=== PATIENT | male | born 1965 | race Caucasian/White ===

== ENCOUNTER 2020-10-13 09:51 | Emergency (ER) | payer SELFPAY ==
[~2020-10-13] VITALS: Ht 188 cm; Wt 87.5 kg
[~2020-10-13 09:51] MED LIST: CLOT1TC TOP; FINA5 PO; GLIM4 PO; Glucophage1000 MG PO; LOSA25 PO; NAPR500 PO; OMEPRAZOLE MAGN20 MG PO; Toprol Xl50 MG PO
[2020-10-13] MEDS ORDERED: CEPH500 PO (10:40)
[2020-10-13] MEDS ORDERED: SULTRIDS PO (10:40)
== END 2020-10-13 11:20 | disposition home or self-care (01) ==
LOC: ER 09:51
DX: L03.115 Cellulitis of right lower limb (principal); E11.9 Type 2 diabetes mellitus without complications; Z79.84 Long term (current) use of oral hypoglycemic drugs; Z79.899 Other long term (current) drug therapy; Z87.891 Personal history of nicotine dependence
CPT/HCPCS: 96372; 99283-25; J1885

== ENCOUNTER 2020-10-19 09:54 | Emergency (ER) | payer OTHER ==
[~2020-10-19] VITALS: Ht 188 cm; Wt 81.7 kg
[~2020-10-19 09:54] MED LIST changes: +CEPH500 PO; +SULTRIDS PO
[2020-10-19] MEDS ORDERED: Zofran8 MG PO (11:12)
== END 2020-10-19 11:30 | disposition home or self-care (01) ==
LOC: ER 09:54
DX: L02.611 Cutaneous abscess of right foot (principal); L03.115 Cellulitis of right lower limb; E11.9 Type 2 diabetes mellitus without complications; Z79.899 Other long term (current) drug therapy; Z79.84 Long term (current) use of oral hypoglycemic drugs; Z91.14 Patient's other noncompliance with medication regimen; Z88.8 Allergy status to other drugs, medicaments and biological substances; Z87.891 Personal history of nicotine dependence
CPT/HCPCS: 10060; 82947; 99283-25; A9270-GY

== ENCOUNTER 2020-10-25 12:48 | Emergency (ER) | payer OTHER ==
[~2020-10-25] VITALS: Ht 188 cm; Wt 72.6 kg
[~2020-10-25 12:48] MED LIST changes: +Zofran8 MG PO
[2020-10-25 13:31] LABS: BASOPHILS ABSOLUTE AUTO 0.06 K/mm3 (0.00-0.23); BASOPHILS PERCENT AUTO 0 % (0-2); EOSINOPHILS ABSOLUTE AUTO 0.08 K/mm3 (0.00-0.68); EOSINOPHILS PERCENT AUTO 1 % (0-6); Hematocrit 34.2 % (37.0-53.0); Hemoglobin 10.4 g/dL (13.5-17.5); IMMATURE GRAN ABSOLUTE AUTO 0.17 K/mm3 (0.00-0.10); IMMATURE GRAN PERCENT AUTO 1 % (0-1); LYMPHOCYTES ABSOLUTE AUTO 1.35 K/mm3 (0.84-5.20); LYMPHOCYTES PERCENT AUTO 10 % (21-46); MONOCYTES ABSOLUTE AUTO 0.68 K/mm3 (0.16-1.47); MONOCYTES PERCENT AUTO 5 % (4-13); Mean Corpuscular HGB 25.6 pg (26.0-34.0); Mean Corpuscular HGB Conc 30.4 g/dL (31.5-36.5); Mean Corpuscular Volume 84 fL (80-100); Mean Platelet Volume 10.4 fL (9.1-12.4); NEUTROPHILS ABSOLUTE AUTO 11.57 K/mm3 (1.96-9.15); NEUTROPHILS PERCENT AUTO 83 % (41-73); Platelet Count 178 K/mm3 (150-400); RDW Coefficient Variation 16.2 % (11.7-14.2); RDW Standard Deviation 49.9 fL (35.1-46.3); Red Blood Cell Count 4.06 M/mm3 (4.30-5.90); White Blood Cell Count 13.91 K/mm3 (4.00-11.30)
[2020-10-25 13:32] LABS: Base Excess Venous -4.5 mmol/L; Bicarbonate Venous 21.1 mmol/L (24.0-30.0); PCO2 Venous 35.5 mmHg (38-42); PO2 Venous 114 mmHg (38-42); pH Blood Venous 7.37 (7.34-7.37)
[2020-10-25 13:56] LABS: Alanine Aminotransfer (ALT/SGP 38 U/L (12-78); Albumin/Globulin Ratio 0.3 (0.8-1.8); Alk Phos 151 U/L (50-136); Anion Gap 8 mmol/L (6-16); Aspartate Aminotrans (AST/SGOT 31 U/L (12-37); Bilirubin, Total 1.1 mg/dL (0.1-1.0); Blood Urea Nitrogen 29 mg/dL (8-24); Bun/Creatinine Ratio 26.9 (12.0-20.0); CO2, Blood 22 mmol/L (21-32); Calcium, Blood 8.3 mg/dL (8.5-10.1); Chloride, Blood 97 mmol/L (98-108); Creatinine, Blood 1.08 mg/dL (0.60-1.20); Globulin, Blood 6.7 g/dL (2.2-4.0); Glomerular Filtration Rate >60 (60-); Glucose, Blood 649 mg/dL (70-99); Potassium, Blood 4.5 mmol/L (3.5-5.5); Sodium, Blood 127 mmol/L (136-145); Total Protein, Blood 8.7 g/dL (6.4-8.2)
== END 2020-10-25 16:33 | disposition left against medical advice (07) ==
LOC: ER 12:48
PROVIDERS: Emergency Medicine
DX: R06.02 Shortness of breath (principal); R19.7 Diarrhea, unspecified; Z53.21 Procedure and treatment not carried out due to patient leaving prior to being seen by health care provider; Z88.8 Allergy status to other drugs, medicaments and biological substances; Z79.84 Long term (current) use of oral hypoglycemic drugs; Z79.899 Other long term (current) drug therapy
CPT/HCPCS: 36415; 71045; 80053; 82803; 85025; 93005; 93010

== ENCOUNTER 2020-11-24 13:02 | Inpatient (IN) | payer OTHER ==
[~2020-11-24] VITALS: Ht 188 cm; Wt 74.8 kg
[2020-11-24 13:40] LABS: BASOPHILS ABSOLUTE AUTO 0.08 K/mm3 (0.00-0.23); BASOPHILS PERCENT AUTO 0 % (0-2); EOSINOPHILS ABSOLUTE AUTO 0.01 K/mm3 (0.00-0.68); EOSINOPHILS PERCENT AUTO 0 % (0-6); Hematocrit 30.6 % (37.0-53.0); Hemoglobin 9.8 g/dL (13.5-17.5); IMMATURE GRAN ABSOLUTE AUTO 0.34 K/mm3 (0.00-0.10); IMMATURE GRAN PERCENT AUTO 2 % (0-1); LYMPHOCYTES ABSOLUTE AUTO 1.77 K/mm3 (0.84-5.20); LYMPHOCYTES PERCENT AUTO 8 % (21-46); MONOCYTES ABSOLUTE AUTO 0.96 K/mm3 (0.16-1.47); MONOCYTES PERCENT AUTO 4 % (4-13); Mean Corpuscular HGB 25.7 pg (26.0-34.0); Mean Corpuscular Volume 80 fL (80-100); Mean Platelet Volume 9.7 fL (9.1-12.4); NEUTROPHILS ABSOLUTE AUTO 19.58 K/mm3 (1.96-9.15); NEUTROPHILS PERCENT AUTO 86 % (41-73); Platelet Count 264 K/mm3 (150-400); RDW Coefficient Variation 17.1 % (11.7-14.2); RDW Standard Deviation 49.6 fL (35.1-46.3); Red Blood Cell Count 3.82 M/mm3 (4.30-5.90); White Blood Cell Count 22.74 K/mm3 (4.00-11.30)
[2020-11-24 14:03] LABS: Alanine Aminotransfer (ALT/SGP 20 U/L (12-78); Albumin, Blood 1.8 g/dL (3.4-5.0); Albumin/Globulin Ratio 0.3 (0.8-1.8); Alk Phos 150 U/L (50-136); Anion Gap 10 mmol/L (6-16); Aspartate Aminotrans (AST/SGOT 24 U/L (12-37); Blood Urea Nitrogen 20 mg/dL (8-24); Bun/Creatinine Ratio 20.9 (12.0-20.0); CO2, Blood 23 mmol/L (21-32); Calcium, Blood 8.8 mg/dL (8.5-10.1); Chloride, Blood 95 mmol/L (98-108); Creatinine, Blood 0.96 mg/dL (0.60-1.20); Globulin, Blood 6.9 g/dL (2.2-4.0); Glomerular Filtration Rate >60 (60-); Glucose, Blood 338 mg/dL (70-99); Potassium, Blood 4.3 mmol/L (3.5-5.5); Sodium, Blood 128 mmol/L (136-145); Total Protein, Blood 8.7 g/dL (6.4-8.2)
[2020-11-24 14:10] LABS: Source, Urine Clean Catch
[2020-11-24 14:19] LABS: Bilirubin, Urine Neg (Neg); Blood, Urine 5+ (Neg); Glucose Qualitative, Urine 4+ (Neg); Ketones, Urine Neg (Neg); Leukocyte Esterase, Urine 3+ (Neg); Nitrite, Urine Neg (Neg); Protein, Urine 2+ (Neg); Specific Gravity, Urine 1.015 (1.003-1.022); Urobilinogen, Urine NORM (Normal)
[2020-11-24 14:28] LABS: Appearance, Urine Hazy (Clear); Color, Urine Yellow (P-Yellow)
[2020-11-24 14:30] LABS: White Blood Cells, Urine TNTC /hpf (0-5)
[2020-11-24 14:31] LABS: Bacteria Many /hpf; Squamous Epithelial Cells Few /hpf (Few)
[2020-11-24 15:01] LABS: Magnesium, Blood 1.6 mg/dL (1.6-2.4); Thyroid Stimulating Hormone 2.03 uIU/mL (0.360-4.800)
[2020-11-24] MEDS ORDERED: METF500 PO (16:19)
[2020-11-24] MEDS ORDERED: Amaryl1 MG PO (18:45)
[2020-11-25 02:24] LABS: Influenza A, PCR Negative (NEGATIVE); Influenza B, PCR Negative (NEGATIVE); Resp Syncytial Virus, PCR Negative (NEGATIVE); SARS-Cov-2 (COVID-19) PCR, MMC Negative (NEGATIVE)
--- NOTE | 2020-11-25 03:04 | NUR ---
2002 PT IS A/O X4. NO CHANGES IN PATIENT. CRITICAL LACTIC ACID REPORTED TO HOSPITALIST HILDA. ORDER TO GIVE 1L NS BOLUS. 2205 PT'S HR HAS BEEN IN THE 110'S. PT DENIES FEELING ANXIOUS. PT COMPAINS OF PAIN IN SHOULDER AND KNEES, MOSTLY RIGHT SHOULDER. PT STATES HE CANNOT TAKE ANY PAIN MEDS BECAUSE HIS PRIMARY DOCTOR GAVE HIM A CORTISONE SHOT ON 11/23/19. PT STATES HIS PRIMARY DOCTOR SAID TO WAIT 48 HOURS TO TAKE PAIN MEDS. HEATING PAD PROVIDED FOR RIGHT KNEE. PT DOES NOT WANT HEATING PAD ON SHOULDER. HOSPITALIST MADE AWARE PT'S HR, BOTH HILDA AND MECHANICAL SYSTEMS DESIGNER SAID IT IS OKAY TO GIVE PAIN MEDICATION AND WON'T AFFECT CORTISONE SHOT. THIS WAS EXPLAINED TO THE PATIENT AND PT EDUCATED THE PAIN MIGHT BE WHAT IS CAUSING HIGH HEART RATE. PT AGREED TO PAIN MEDICATION. IV TORADOL GIVEN. PAIN HAS DECREASED SINCE THIS WAS GIVEN. 2300 PT HR STILL IN THE 110'S. PT STATES PAIN IS TOLERABLE. HOSPITALIST HILDA NOTIFIED. TELE ORDERED. 2345 PT BP DECREASING, STILL TACHY. SINUS TACH AT 119 PER COAT AGENT. HOSPTIALIST HILDA NOTIFIED. 1L BOLUS NS ORDERED WELL CONTINOUS NS AT 200 ML. WILL CONTINUE TO MONITOR.
[2020-11-25 05:41] LABS: Hematocrit 25.7 % (37.0-53.0); Hemoglobin 7.9 g/dL (13.5-17.5); Mean Corpuscular HGB 24.8 pg (26.0-34.0); Mean Corpuscular HGB Conc 30.7 g/dL (31.5-36.5); Mean Corpuscular Volume 81 fL (80-100); Mean Platelet Volume 10.4 fL (9.1-12.4); Platelet Count 185 K/mm3 (150-400); RDW Coefficient Variation 17.2 % (11.7-14.2); RDW Standard Deviation 50.6 fL (35.1-46.3); Red Blood Cell Count 3.18 M/mm3 (4.30-5.90); White Blood Cell Count 11.74 K/mm3 (4.00-11.30)
[2020-11-25 05:59] LABS: Anion Gap 8 mmol/L (6-16); Blood Urea Nitrogen 20 mg/dL (8-24); Bun/Creatinine Ratio 19.8 (12.0-20.0); CO2, Blood 21 mmol/L (21-32); Calcium, Blood 8.2 mg/dL (8.5-10.1); Chloride, Blood 103 mmol/L (98-108); Creatinine, Blood 1.01 mg/dL (0.60-1.20); Glomerular Filtration Rate >60 (60-); Glucose, Blood 320 mg/dL (70-99); Potassium, Blood 4.3 mmol/L (3.5-5.5); Sodium, Blood 132 mmol/L (136-145)
[2020-11-25 06:46] LABS: Percent Saturation 20.3 % (20.0-50.0)
[2020-11-25 06:55] LABS: BAND PERCENT MAN 4 % (0-8); BASOPHILS PERCENT MAN 0 % (0-2); EOSINOPHILS PERCENT MAN 0 % (0-6); LYMPHOCYTES ABSOLUTE MAN 0.82 K/mm3 (0.84-5.20); LYMPHOCYTES PERCENT MAN 7 % (21-46); MONOCYTES ABSOLUTE MAN 0.23 K/mm3 (0.16-1.47); MONOCYTES PERCENT MAN 2 % (4-13); NEUTROPHILS ABSOLUTE MAN 10.68 K/mm3 (1.96-9.15); SEG NEUTROPHILS PERCENT MAN 87 % (41-73); TOTAL CELLS COUNTED 100
--- NOTE | 2020-11-25 07:37 | NUR ---
FLAP PRESSER SUMMARY PT A/O X4. PT'S PAIN HAS BEEN TOLERABLE SINCE IV PAIN MED GIVEN. PT HAD A FALL AT 0330. PT DID NOT USE CALL LIGHT. PER PT, HE WAS TRYING TO AMBULATE TO [facility] AND DRAGGED IT BACK NEAR THE BEDSIDE AND HE WAS WALKING BACKWARDS, HE WAS CAUGHT IN IV LINE AND FELL. PT DID NOT HIT HIS HEAD. MID FALL WITNESSED BY BUSINESS ACCOUNT LEADERFALGUNI. PT HAS AN ABRASTION UNDERNEATH RIGHT BUTTOCKS. PT STATES HE DOES NOT FEEL PAIN. PICTURE TAKEN OF ABRASION FROM FALL. PT RE-EDUCATED TO USE CALL LIGHT WHENEVER NEEDING TO GET UP OR OTHER HELP. BED ALARM PLACED. POSITIVE BLOOD CULTURE NOTIFIED TO HOSPITALIST DR. VILLAFANA. NO NEW ORDER. PLEASE VIEW PREVIOUS RN NOTES. REPORT GIVEN TO ONCOMING RN.
--- NOTE | 2020-11-25 11:14 | NUR ---
Echocardiogram completed.
--- NOTE | 2020-11-25 16:50 | NUR ---
SHIFT SUMMARY PT AOX4. CALLS APPROPRIATELY. PT IS ON RA AND 1P ASSIST. PT IS VERY UNSTEADY AND HAS GENERALIZED WEAKNESS. PT STATED THAT DR ESCOBAR CAME IN WHO WAS SUPPOSED TO DO THE SURGERY OF HIS ABCESS THIS AM; APPARENTLY SURGERY CANCELLED TODAY, DR COUCH AWARE. PT IS BACK TO [facility] DIET. PT HAD ECHO DONE TODAY, AND SEEN BY PULMUNOLOGIST FOR LEFT EMPYEMA. PT WILL ALSO BE SEEN BY DR GALLOWAY FOR MRSA INFECTION. PT AWAITS FOR CT-CHEST. PT C/O PAIN; MEDICATED PER EMAR. BP IS ON THE LOW 100'S SBP. ENCOURAGE PO. PT IS ON BED ALARM AND ENCOURANGE THE USE OF CALL LIGHT. BED IS IN THE LOWEST POSITION AND CALL LIGHT WITHIN REACH
[2020-11-25 18:25] LABS: Vancomycin, Trough 12.4 ug/mL (5.0-10.0)
[2020-11-25 20:01] LABS: International Normalized Ratio 1.19; Prothrombin Time Results 12.6 Sec (9.7-11.5)
--- NOTE | 2020-11-26 04:40 | NUR ---
SHIFT SUMMARY- PT. A&O, PLEASANT, AND COOPERATIVE WITH CARE. HAD NO ACUTE EVENTS OVERNIGHT. HEPARIN GTT ORDER CANCELLED BY PULMONOLOGY. PT. CONTINUED ON IV FLUIDS AND ABX'S, TOLERATING WELL. C/O OF R FOOT PAIN 1X THIS SHIFT, MEDICATED PER EMAR WITH GOOD EFFECT. PT. APPEARED TO HAVE SLEPT COMFORTABLY T/O THE NIGHT, NO APPARENT DISTRESS NOTED. DENIED ANY OTHER NEEDS T/O THE NIGHT, VSS. PLAN FOR DR. FOX TO CONSULT ON PT. REGARDING POSS L CHEST TUBE PLACEMENT AND DRAINAGE. CALL LIGHT WITHIN REACH, SIDE RAILS UPX2, AND BED ALARM ON FOR SAFETY. WILL CONT TO MONITOR.
[2020-11-26 05:37] LABS: Hematocrit 23.7 % (37.0-53.0); Hemoglobin 7.2 g/dL (13.5-17.5); Mean Corpuscular HGB 24.5 pg (26.0-34.0); Mean Corpuscular HGB Conc 30.4 g/dL (31.5-36.5); Mean Corpuscular Volume 81 fL (80-100); Mean Platelet Volume 9.7 fL (9.1-12.4); Platelet Count 172 K/mm3 (150-400); RDW Coefficient Variation 17.3 % (11.7-14.2); RDW Standard Deviation 50.7 fL (35.1-46.3); Red Blood Cell Count 2.94 M/mm3 (4.30-5.90); White Blood Cell Count 10.18 K/mm3 (4.00-11.30)
[2020-11-26 06:09] LABS: Albumin, Blood 1.2 g/dL (3.4-5.0); Anion Gap 9 mmol/L (6-16); Blood Urea Nitrogen 19 mg/dL (8-24); Bun/Creatinine Ratio 18.4 (12.0-20.0); CO2, Blood 19 mmol/L (21-32); Calcium, Blood 7.9 mg/dL (8.5-10.1); Chloride, Blood 104 mmol/L (98-108); Creatinine, Blood 1.03 mg/dL (0.60-1.20); Glomerular Filtration Rate >60 (60-); Glucose, Blood 254 mg/dL (70-99); Phosphorus, Blood 2.4 mg/dL (2.5-4.9); Potassium, Blood 3.8 mmol/L (3.5-5.5); Sodium, Blood 132 mmol/L (136-145)
--- NOTE | 2020-11-26 17:48 | NUR ---
SUMMARY PT IS A/O X4, PLEASANT/COOPERATIVE. HE STATE CONINUING L SHOULDER PAIN, R KNEE PAIN HAVE GIVEN IV TORADOL FOR RELIEF/CONTROL. DR GALLOWAY IN TODAY, ADJUST IV ANTIBX, ORDER ORTHO CONSULT w DR Dixie POP R/T R KNEE SWELLING. DR COUCH ORDER CT GUIDED CHEST TUBE PLACEMENT. HE WENT OUT TO HAVE CHEST TUBE PLACED THIS AFTERNOON, INSERT SITE L BACK, DRNG THICK PANTOJA FLUID. LUNGS TODAY WERE DECREASED T/O w CRACKLES HE HAS BEEN COUGHING UP MODERATE AMTS SPUTUM. DR COUCH ASSESS LIA AREA ABCESS SITE, DRY @ THIS TIME, SHE STATE TO LEAVE OPEN TO AIR. VSS. IVF'S & IV ANTIBX CONTINUE.
[2020-11-26 19:10] LABS: BODY FLUID RBC 0.011 M/mm3 (0-0)
[2020-11-26 19:18] LABS: Body Fluid Crystals NEG (NEGATIVE)
[2020-11-26 19:23] LABS: WBC Count, Synovial Fluid 33840 /mm3 (0-180)
[2020-11-26 19:25] LABS: Appearance, Synovial Fluid Cloudy (Clear); Color, Synovial Fluid Yellow (None-P Yel)
[2020-11-26 19:44] LABS: Lymphs, Synovial Fluid 2 % (0-15); Monocytes/Macrophages, Synovia 5 % (0-65); Neutrophils, Synovial Fluid 93 % (0-24)
[2020-11-27 05:07] LABS: BASOPHILS ABSOLUTE AUTO 0.05 K/mm3 (0.00-0.23); BASOPHILS PERCENT AUTO 0 % (0-2); Hemoglobin 7.4 g/dL (13.5-17.5); LYMPHOCYTES ABSOLUTE AUTO 1.24 K/mm3 (0.84-5.20); LYMPHOCYTES PERCENT AUTO 10 % (21-46); MONOCYTES ABSOLUTE AUTO 0.81 K/mm3 (0.16-1.47); MONOCYTES PERCENT AUTO 7 % (4-13); Mean Corpuscular HGB 25.1 pg (26.0-34.0); Mean Corpuscular HGB Conc 30.8 g/dL (31.5-36.5); Mean Corpuscular Volume 81 fL (80-100); Mean Platelet Volume 9.9 fL (9.1-12.4); Platelet Count 183 K/mm3 (150-400); RDW Coefficient Variation 17.5 % (11.7-14.2); RDW Standard Deviation 51.3 fL (35.1-46.3); Red Blood Cell Count 2.95 M/mm3 (4.30-5.90); White Blood Cell Count 12.18 K/mm3 (4.00-11.30)
[2020-11-27 05:39] LABS: Alanine Aminotransfer (ALT/SGP 35 U/L (12-78); Albumin, Blood 1.2 g/dL (3.4-5.0); Albumin/Globulin Ratio 0.2 (0.8-1.8); Alk Phos 122 U/L (50-136); Anion Gap 8 mmol/L (6-16); Aspartate Aminotrans (AST/SGOT 56 U/L (12-37); Bilirubin, Total 0.8 mg/dL (0.1-1.0); Blood Urea Nitrogen 19 mg/dL (8-24); Bun/Creatinine Ratio 19.1 (12.0-20.0); CO2, Blood 20 mmol/L (21-32); Chloride, Blood 105 mmol/L (98-108); Creatinine, Blood 0.99 mg/dL (0.60-1.20); Globulin, Blood 5.3 g/dL (2.2-4.0); Glomerular Filtration Rate >60 (60-); Glucose, Blood 225 mg/dL (70-99); Potassium, Blood 4.1 mmol/L (3.5-5.5); Sodium, Blood 133 mmol/L (136-145); Total Protein, Blood 6.5 g/dL (6.4-8.2)
[2020-11-27 05:53] LABS: EOSINOPHILS ABSOLUTE AUTO 0.16 K/mm3 (0.00-0.68); EOSINOPHILS PERCENT AUTO 1 % (0-6); IMMATURE GRAN ABSOLUTE AUTO 0.18 K/mm3 (0.00-0.10); IMMATURE GRAN PERCENT AUTO 2 % (0-1); NEUTROPHILS ABSOLUTE AUTO 9.74 K/mm3 (1.96-9.15); NEUTROPHILS PERCENT AUTO 80 % (41-73)
--- NOTE | 2020-11-27 07:30 | NUR ---
SHIFT SUMMARY: PATIENT IS A&OX3, S/P ASPIRATION OF R KNEE AND CHEST TUBE PLACEMENT. VSS, IVF INFUSING AT 200ML/HR, WITH SCHEDULED VANCO AND UNASYN. PATIENT REPORTED PAIN IN L SHOULDER 7-8/10 WITH AN HOUR BEFOR NEXT DOSE WAS AVAILABLE. DR MADRIGAL WAS NOTIFIED AND ORDERS FOR DILAUDID AND OXYCODONE. DILAUDID WAS GIVEN WITH GOOD EFFECT, RATING PAIN 2/10 ON RE-ASSESMENT. CHEST TUBE DRAIN PUT OUT 59 ML OF LIGHT BROWN FLUID. DRSG TO R FOOT IS CD&I. WOUND ON LEFT GLUTEAL FOLD IS OPEN TO AIR PER MD ORDER. BANDAID ON R KNEE HAS A SCANT AMOUNT OF OLD SHADOWING. AQUA PAD IS IN PLACE ON R KNEE.
[2020-11-27 08:10] LABS: HIV SCREEN 4TH GENERATION WRFX Non Reactive (Non Reactive)
--- NOTE | 2020-11-27 11:49 | NUR ---
CBG 216, PLANT HR MANAGER REPORT RESULT DID NOT CROSS OVER TO INTERNET. PT CONTINUES NPO HOLDING INSULIN @ THIS TIME.
--- NOTE | 2020-11-27 13:20 | NUR ---
RECEIVED REPORT MANOLO HUTTON. HELPED PT TRANSFER TO [facility] WITH WALKER. PT IS VERY PAINFUL WITH ANY MOVEMENT. CHEST TUBE TO L POSTERIER BACK WITH DRESSING CDI. DRAINING YELLOW PINK SCANT AMOUNT OF FLUID, SUCTION INTACT. History, Chart, Medications and Allergies reviewed before start of procedure.Patient confirms NPO status and agrees with scheduled surgery.
--- NOTE | 2020-11-27 14:50 | NUR ---
CHEST TUBE DRAIN WITH SCANT PANTOJA DRNG SITE CLEAR FRANDY INTACT RO RIGHT KNEE WITH NO DRNG
[2020-11-27 16:30] LABS: Vancomycin, Trough 15.1 ug/mL (5.0-10.0)
--- NOTE | 2020-11-27 18:03 | NUR ---
SUMMARY PT IS A/O X4, PLEASANT/COOPERATIVE HOWEVER HE STATE CONTINUING PAIN R KNEE & L SHOULDER. HAVE GIVEN IV DILAUDID 0.5 MULT X'S TODAY FOR PAIN RELIEF. HE HAS BEEN NPO T/O DAY FOR R KNEE SURG/I&D TODAY FOLLOWED BY ERICH THIS AFTERNOON. PROCEDURES FINISHED APPROX 1809. DR COUCH SPOKE w PT & S/O TODAY STATE BED UNAVAIL @ [facility], PLAN FOR TRANSFER TO [facility], THEY AGREE. EARLY INTERVENTIONIST ARRNGE STEPHENRA TRANSFER/ORDER.
--- NOTE | 2020-11-27 18:05 | NUR ---
PT STABLE POST PROCEDURE, REPORT TO JO HOANG; ALL QUESTIONS ANSWERED.
--- NOTE | 2020-11-27 18:51 | NUR ---
REPORT CALLED TO SEJAL MAX
--- NOTE | 2020-11-27 20:03 | NUR ---
FOLLOWING ERICH. PT ABLE TO TAKE CL'S W/O DIFFICULTY. DR COUCH NOTIFIED, ORDER ADA DINNER TRAY, PROVIDED TO PT PRIOR TO COBRA TRANSFER TO [facility]. AMB CREW ARRIVE APPROX 1949. PT TRANSFERED TO [facility]. NS INFUSING @ 75 ML/HR w IVPB VANCO VIA R POWERGLIDE IV. LAC IV SITE SL. CHEST TUBE L ANTERIOR UPPER BACK PATENT, SECURE DRSG CDI. FRANDY DRAIN R KNEE PATENT, SECURE. R KNEE DRSG IN PLACE, CDI. PT GIVEN IV DILAUDID 0.5MG @ 1845 IN PREP FOR TRANSPORT, LSHOULDER & RKNEE CONTINUE PAINFUL w MOVEMENT. PT IS A/O X4, CALLING S/O TO INFORM HER OF TRANSFER & RM #.
[2021-04-14] MEDS ORDERED: ELIQUIS5 MG PO (12:37)
[2021-04-14] MEDS ORDERED: CYCL10 PO (12:38)
[2021-04-14] MEDS ORDERED: BISA10S PR (12:38)
[2021-04-14] MEDS ORDERED: Pepcid20 MG PO (12:39)
[2021-04-14] MEDS ORDERED: INSULIN LANTUS SC (12:40)
[2021-04-14] MEDS ORDERED: METO50ER PO (12:40)
[2021-04-14] MEDS ORDERED: OXYC5 PO (12:41)
[2021-04-14] MEDS ORDERED: OMEP20ER PO (12:41)
[2021-04-14] MEDS ORDERED: METO25 PO (12:41)
[2021-04-14] MEDS ORDERED: MULVITA PO (12:41)
[2021-04-14] MEDS ORDERED: MIRALAX17 GM PO (12:42)
[2021-04-14] MEDS ORDERED: TAMS.4ER PO (12:42)
[2021-04-14] MEDS ORDERED: TRAM50 PO (12:42)
== END 2020-11-27 19:15 | disposition short-term general hospital (02) | DRG 871 ==
LOC: ER 13:02 → MEDS 13:03
PROVIDERS: Emergency Medicine; Internal Medicine Critical Care Medicine; Orthopaedic Surgery; Physician Assistant; Surgery; ADMIT Internal Medicine
PROC: 0W9B30Z Drainage of Left Pleural Cavity with Drainage Device, Percutaneous Approach (ICD-10-PCS; 2020-11-26)
PROC: 0S9C40Z Drainage of Right Knee Joint with Drainage Device, Percutaneous Endoscopic Approach (ICD-10-PCS; 2020-11-27)
PROC: B246ZZ4 Ultrasonography of Right and Left Heart, Transesophageal (ICD-10-PCS; 2020-11-27)
PROC: 3E1U48Z Irrigation of Joints using Irrigating Substance, Percutaneous Endoscopic Approach (ICD-10-PCS; principal; 2020-11-27 12:45)
DX: A41.02 Sepsis due to Methicillin resistant Staphylococcus aureus (principal); N15.1 Renal and perinephric abscess; K68.12 Psoas muscle abscess; J86.9 Pyothorax without fistula; K61.1 Rectal abscess; N12 Tubulo-interstitial nephritis, not specified as acute or chronic; M00.9 Pyogenic arthritis, unspecified; Z87.891 Personal history of nicotine dependence; N40.0 Benign prostatic hyperplasia without lower urinary tract symptoms; Z79.84 Long term (current) use of oral hypoglycemic drugs; I10 Essential (primary) hypertension; E86.0 Dehydration; E11.65 Type 2 diabetes mellitus with hyperglycemia; Z66 Do not resuscitate; Z20.822 Contact with and (suspected) exposure to COVID-19; I37.1 Nonrheumatic pulmonary valve insufficiency; I34.0 Nonrheumatic mitral (valve) insufficiency; Z91.19 Patient's noncompliance with other medical treatment and regimen; D63.8 Anemia in other chronic diseases classified elsewhere
CPT/HCPCS: 0241U; 32557; 36415; 71260; 73560-RT; 73630; 74177; 80048; 80053; 80069; 80202; 81001; 82607; 82728; 82746; 82947; 83540; 83550; 83605; 83735; 84145; 84443; 85025; 85027; 85610; 85730; 87040; 87070; 87075; 87077; 87086; 87147; 87186; 87205; 87389; 88108; 88305; 89051; 89060; 93005; 93010; 93306; 93312; 93325; 93970; 96365-59; 99152; 99285-25; A9270; C1751; J0171; J0295; J0696; J1100; J1170; J1644; J1650; J1885; J2250; J2310; J2370; J2405; J2543; J2704; J3010; J3370; J7030; J7040; J7050; J7060; J7120; Q9967

== ENCOUNTER → 2021-01-04 | Outpatient (CLI) | payer OTHER ==
[~2021-01-04] MED LIST changes: +Amaryl1 MG PO; +BISA10S PR; +CYCL10 PO; +ELIQUIS5 MG PO; +INSULANI SC; +INSULIN LANTUS SC; +METF500 PO; +METO25 PO; +METO50ER PO; +MIRALAX17 GM PO; +MULVITA PO; +OMEP20ER PO; +OXYC5 PO; +Pepcid20 MG PO; +TAMS.4ER PO; +TRAM50 PO
[2021-01-04 10:56] LABS: Hemoglobin 10.5 g/dL (13.5-17.5); Mean Corpuscular HGB 25.3 pg (26.0-34.0); Mean Corpuscular HGB Conc 30.9 g/dL (31.5-36.5); Mean Corpuscular Volume 82 fL (80-100); Mean Platelet Volume 11.2 fL (9.1-12.4); Platelet Count 193 K/mm3 (150-400); RDW Standard Deviation 47.9 fL (35.1-46.3); Red Blood Cell Count 4.15 M/mm3 (4.30-5.90); White Blood Cell Count 6.82 K/mm3 (4.00-11.30)
[2021-01-04 11:44] LABS: Alanine Aminotransfer (ALT/SGP 68 U/L (12-78); Albumin, Blood 2.8 g/dL (3.4-5.0); Albumin/Globulin Ratio 0.5 (0.8-1.8); Alk Phos 194 U/L (50-136); Anion Gap 5 mmol/L (6-16); Aspartate Aminotrans (AST/SGOT 40 U/L (12-37); Bilirubin, Total 0.3 mg/dL (0.1-1.0); Blood Urea Nitrogen 19 mg/dL (8-24); Bun/Creatinine Ratio 19.1 (12.0-20.0); CO2, Blood 29 mmol/L (21-32); Chloride, Blood 103 mmol/L (98-108); Glomerular Filtration Rate >60 (60-); Glucose, Blood 95 mg/dL (70-99); Potassium, Blood 4.3 mmol/L (3.5-5.5); Sodium, Blood 137 mmol/L (136-145); Total Protein, Blood 8.8 g/dL (6.4-8.2)
[2021-01-04 11:56] LABS: Vancomycin, Trough 18.8 ug/mL (5.0-10.0)
== END | disposition home or self-care (01) ==
LOC: LAB UVN 10:24 → EDSTATUS 11:18
PROVIDERS: Family Medicine
DX: A41.02 Sepsis due to Methicillin resistant Staphylococcus aureus (principal)
CPT/HCPCS: 80053; 80202; 85027; 86140

== ENCOUNTER → 2021-01-11 | Outpatient (CLI) | payer OTHER ==
[2021-01-11 13:39] LABS: Hematocrit 36.7 % (37.0-53.0); Mean Corpuscular Volume 83 fL (80-100); Mean Platelet Volume 11.1 fL (9.1-12.4); Platelet Count 222 K/mm3 (150-400); RDW Coefficient Variation 16.3 % (11.7-14.2); RDW Standard Deviation 49.3 fL (35.1-46.3); White Blood Cell Count 8.28 K/mm3 (4.00-11.30)
[2021-01-11 14:04] LABS: Alanine Aminotransfer (ALT/SGP 66 U/L (12-78); Albumin/Globulin Ratio 0.5 (0.8-1.8); Alk Phos 170 U/L (50-136); Anion Gap 5 mmol/L (6-16); Aspartate Aminotrans (AST/SGOT 45 U/L (12-37); Bilirubin, Total 0.3 mg/dL (0.1-1.0); Blood Urea Nitrogen 19 mg/dL (8-24); Bun/Creatinine Ratio 19.2 (12.0-20.0); CO2, Blood 29 mmol/L (21-32); Calcium, Blood 9.8 mg/dL (8.5-10.1); Chloride, Blood 102 mmol/L (98-108); Creatinine, Blood 0.99 mg/dL (0.60-1.20); Globulin, Blood 5.7 g/dL (2.2-4.0); Glomerular Filtration Rate >60 (60-); Glucose, Blood 129 mg/dL (70-99); Sodium, Blood 136 mmol/L (136-145); Total Protein, Blood 8.7 g/dL (6.4-8.2); Vancomycin, Trough 18.7 ug/mL (5.0-10.0)
== END | disposition home or self-care (01) ==
LOC: EDSTATUS 11:19 → LAB UVN 13:03
PROVIDERS: Family Medicine
DX: I26.90 Septic pulmonary embolism without acute cor pulmonale (principal); A41.02 Sepsis due to Methicillin resistant Staphylococcus aureus
CPT/HCPCS: 80053; 80202; 85027; 86140

== ENCOUNTER → 2021-03-16 | Outpatient (CLI) | payer OTHER ==
[2021-03-16 05:56] LABS: BASOPHILS ABSOLUTE AUTO 0.03 K/mm3 (0.00-0.23); BASOPHILS PERCENT AUTO 1 % (0-2); EOSINOPHILS ABSOLUTE AUTO 0.15 K/mm3 (0.00-0.68); EOSINOPHILS PERCENT AUTO 3 % (0-6); Hematocrit 36.6 % (37.0-53.0); Hemoglobin 12.1 g/dL (13.5-17.5); IMMATURE GRAN ABSOLUTE AUTO 0.01 K/mm3 (0.00-0.10); IMMATURE GRAN PERCENT AUTO 0 % (0-1); LYMPHOCYTES ABSOLUTE AUTO 1.33 K/mm3 (0.84-5.20); LYMPHOCYTES PERCENT AUTO 30 % (21-46); MONOCYTES PERCENT AUTO 11 % (4-13); Mean Corpuscular HGB 26.5 pg (26.0-34.0); Mean Corpuscular HGB Conc 33.1 g/dL (31.5-36.5); Mean Corpuscular Volume 80 fL (80-100); Mean Platelet Volume 9.3 fL (9.1-12.4); NEUTROPHILS ABSOLUTE AUTO 2.49 K/mm3 (1.96-9.15); NEUTROPHILS PERCENT AUTO 55 % (41-73); Platelet Count 141 K/mm3 (150-400); RDW Coefficient Variation 13.7 % (11.7-14.2); Red Blood Cell Count 4.57 M/mm3 (4.30-5.90); White Blood Cell Count 4.51 K/mm3 (4.00-11.30)
[2021-03-16 06:12] LABS: Anion Gap 5 mmol/L (6-16); Blood Urea Nitrogen 18 mg/dL (8-24); Bun/Creatinine Ratio 15.7 (12.0-20.0); CO2, Blood 27 mmol/L (21-32); Calcium, Blood 9.4 mg/dL (8.5-10.1); Chloride, Blood 104 mmol/L (98-108); Creatinine, Blood 1.15 mg/dL (0.60-1.20); Glomerular Filtration Rate >60 (60-); Glucose, Blood 133 mg/dL (70-99); Potassium, Blood 3.8 mmol/L (3.5-5.5); Sodium, Blood 136 mmol/L (136-145)
== END | disposition home or self-care (01) ==
LOC: LAB UVN 05:48 → EDSTATUS 12:07
PROVIDERS: Internal Medicine
DX: E11.9 Type 2 diabetes mellitus without complications (principal); E78.5 Hyperlipidemia, unspecified; E87.1 Hypo-osmolality and hyponatremia; R78.81 Bacteremia
CPT/HCPCS: 80048; 85025

== ENCOUNTER → 2021-04-01 | Outpatient (CLI) | payer OTHER | END | disposition home or self-care (01) | LOC: LAB UVN 06:18 → EDSTATUS 10:52 | DX: A41.9 Sepsis, unspecified organism (principal); D64.9 Anemia, unspecified; E87.1 Hypo-osmolality and hyponatremia; E11.65 Type 2 diabetes mellitus with hyperglycemia; R53.1 Weakness; R63.4 Abnormal weight loss; I10 Essential (primary) hypertension; I82.409 Acute embolism and thrombosis of unspecified deep veins of unspecified lower extremity | CPT/HCPCS: 83036; 85018 ==

== ENCOUNTER 2021-04-15 11:03 | Inpatient (IN) | payer OTHER ==
[~2021-04-15] VITALS: Ht 188 cm; Wt 130.4 kg
[~2021-04-15 11:03] MED LIST changes: -INSULANI SC
[2021-04-15] MEDS ORDERED: INSULANI SC (13:37)
--- NOTE | 2021-04-15 14:23 | NUR ---
Surgical site prepped with 2% Chlorhexidine cloth wipe. History, Chart, Medications and Allergies reviewed before start of procedure.Lungs clear T/O to Auscultation. Patient confirms NPO status and agrees with scheduled surgery. PT RECEIVED OXYCONTIN PO PER ORDER WITH A SIP OF WATER. ALL BELONINGS LEFT IN ROOM 207 IN WHEELCHAIR. MELISSA ALTAMIRANO RN AWARE. SENT BLOOD TO BB FOR TS. PT MAINTAINED IN CONTACT ISOLATION.
--- NOTE | 2021-04-15 18:28 | NUR ---
ARRIVAL TO UNIT PT ARRIVED TO UNIT AT 1745 VIA BED FROM PACU. PT IS AAOX4, REPORTS PAIN OF 8/10 IN RLE. MEDICATED PER EMAR AND REPORTS NO EFFECT, HE IS RESTING COMFORTABLY IN BED WITH NO GRIMACE ON HIS FACE, RESPIRATIONS ARE EVEN AND UNLABORED. PT ON ROOM AIR DENIES SOB. HE IS TOLERATING PO WELL AT THIS TIME WITH NO NAUSEA. CURRENTLY SITTING UP WATCHING TV AND TALKING ON THE PHONE. BELONGINGS AT BEDSIDE. PT UNSURE OF CURRENT MEDICATION REGIMEN WILL ATTEMPT TO RECTIFY ONCE ABLE. PLAN IS TO CONTINUE WITH PAIN MANAGEMENT.
[2021-04-16 04:36] LABS: BASOPHILS ABSOLUTE AUTO 0.01 K/mm3 (0.00-0.23); BASOPHILS PERCENT AUTO 0 % (0-2); EOSINOPHILS PERCENT AUTO 0 % (0-6); Hematocrit 33.6 % (37.0-53.0); Hemoglobin 11.2 g/dL (13.5-17.5); IMMATURE GRAN ABSOLUTE AUTO 0.03 K/mm3 (0.00-0.10); IMMATURE GRAN PERCENT AUTO 0 % (0-1); LYMPHOCYTES ABSOLUTE AUTO 0.77 K/mm3 (0.84-5.20); LYMPHOCYTES PERCENT AUTO 9 % (21-46); MONOCYTES ABSOLUTE AUTO 0.38 K/mm3 (0.16-1.47); MONOCYTES PERCENT AUTO 4 % (4-13); Mean Corpuscular HGB 27.5 pg (26.0-34.0); Mean Corpuscular HGB Conc 33.3 g/dL (31.5-36.5); Mean Corpuscular Volume 83 fL (80-100); Mean Platelet Volume 10.4 fL (9.1-12.4); NEUTROPHILS ABSOLUTE AUTO 7.89 K/mm3 (1.96-9.15); NEUTROPHILS PERCENT AUTO 87 % (41-73); Platelet Count 101 K/mm3 (150-400); RDW Coefficient Variation 14.3 % (11.7-14.2); RDW Standard Deviation 42.1 fL (35.1-46.3); Red Blood Cell Count 4.07 M/mm3 (4.30-5.90); White Blood Cell Count 9.08 K/mm3 (4.00-11.30)
--- NOTE | 2021-04-16 04:50 | NUR ---
SHIFT SUMMARY POD 1 FOR R AKA. STUMP SOCK REMAINS CDI. PT HAS BEEN C/O PHANTOM LIMB PAIN. FLEXIRIL + ROXICODONE GIVEN PER ORDERS. PT USING URINAL TO VOID. JEAN PAUL ADA DIET. USES CALL LIGHT APPROPRIATELY.
--- NOTE | 2021-04-16 09:29 | NUR ---
04/16/21 0929 Екатерина Rogel VERIFICATIONS: EDIT CHART.
--- NOTE | 2021-04-16 17:30 | NUR ---
pt req i remove his iv cath in his wrist removed for comfort meds given as sched pt eating dinner
--- NOTE | 2021-04-17 04:16 | NUR ---
SHIFT SUMMARY: PT POD#2 FOR R AKA. STUMP SOCK DRESSING C/D/I. PAIN WELL MANAGED WITH PERCOCET PER EMAR. PT VOIDING WELL IN URINAL. TRANSFERS TO WHEELCHAIR SBA. CBG 318 AND PT COVERED PER ORDERS. TOLERATING PO. DENIES N/V. AWAITING DISCHARGE TO [facility].
[2021-04-17 05:26] LABS: BASOPHILS ABSOLUTE AUTO 0.02 K/mm3 (0.00-0.23); BASOPHILS PERCENT AUTO 0 % (0-2); EOSINOPHILS ABSOLUTE AUTO 0.05 K/mm3 (0.00-0.68); EOSINOPHILS PERCENT AUTO 1 % (0-6); Hematocrit 29.1 % (37.0-53.0); Hemoglobin 9.7 g/dL (13.5-17.5); IMMATURE GRAN ABSOLUTE AUTO 0.02 K/mm3 (0.00-0.10); IMMATURE GRAN PERCENT AUTO 0 % (0-1); LYMPHOCYTES ABSOLUTE AUTO 1.33 K/mm3 (0.84-5.20); LYMPHOCYTES PERCENT AUTO 22 % (21-46); MONOCYTES ABSOLUTE AUTO 0.57 K/mm3 (0.16-1.47); MONOCYTES PERCENT AUTO 10 % (4-13); Mean Corpuscular HGB 27.7 pg (26.0-34.0); Mean Corpuscular HGB Conc 33.3 g/dL (31.5-36.5); Mean Corpuscular Volume 83 fL (80-100); Mean Platelet Volume 10.4 fL (9.1-12.4); NEUTROPHILS ABSOLUTE AUTO 4.01 K/mm3 (1.96-9.15); NEUTROPHILS PERCENT AUTO 67 % (41-73); Platelet Count 94 K/mm3 (150-400); RDW Coefficient Variation 14.7 % (11.7-14.2); RDW Standard Deviation 44.9 fL (35.1-46.3)
--- NOTE | 2021-04-17 11:30 | NUR ---
A&OX4, MEDICATED W/ PERCOCET THIS AM FOR C/O PAIN ON R STUMP AND "PHANTOM PAIN" PT ABLE TO REPOSITION SELF IN BED, DRESSING ON R STUMP CHANGED BY OTONIEL MOREL THIS AM INCISION SITE APPEARS CLEAN AND DRY, DAVID INTACT, NO REDNESS NOTED, REPORTS TOLERATING DIET WELL, CBG THIS AM WAS 180, WORKED WITH PHYSICAL THERAPY THIS AM, TOLERATED WELL.
--- NOTE | 2021-04-17 14:41 | NUR ---
REFERRAL PACKET FAXED TO [facility] FOR RETURN TO [facility].
--- NOTE | 2021-04-17 17:26 | NUR ---
SUMMARY MEDICATED FOR PAIN ABOUT Q4HRS, WORKED WITH PT TODAY, TOLERATED FAIRLY WELL, DSG CHANGED TODAY BY OTONIEL RODRÍGUEZ, PT REPOSITIONS SELF IN BED, CBG'S APPEAR TO BE BETTER, 142 THIS EVENING, PLAN DC TO SNF ON MONDAY, NO ACUTE CHANGES THIS SHIFT.
[2021-04-18 04:21] LABS: BASOPHILS ABSOLUTE AUTO 0.03 K/mm3 (0.00-0.23); BASOPHILS PERCENT AUTO 1 % (0-2); EOSINOPHILS ABSOLUTE AUTO 0.16 K/mm3 (0.00-0.68); EOSINOPHILS PERCENT AUTO 3 % (0-6); Hematocrit 32.1 % (37.0-53.0); Hemoglobin 10.5 g/dL (13.5-17.5); IMMATURE GRAN ABSOLUTE AUTO 0.03 K/mm3 (0.00-0.10); IMMATURE GRAN PERCENT AUTO 1 % (0-1); LYMPHOCYTES ABSOLUTE AUTO 1.85 K/mm3 (0.84-5.20); LYMPHOCYTES PERCENT AUTO 34 % (21-46); MONOCYTES ABSOLUTE AUTO 0.53 K/mm3 (0.16-1.47); MONOCYTES PERCENT AUTO 10 % (4-13); Mean Corpuscular HGB 27.2 pg (26.0-34.0); Mean Corpuscular HGB Conc 32.7 g/dL (31.5-36.5); Mean Corpuscular Volume 83 fL (80-100); Mean Platelet Volume 10.1 fL (9.1-12.4); NEUTROPHILS ABSOLUTE AUTO 2.91 K/mm3 (1.96-9.15); NEUTROPHILS PERCENT AUTO 53 % (41-73); Platelet Count 104 K/mm3 (150-400); RDW Coefficient Variation 14.8 % (11.7-14.2); Red Blood Cell Count 3.86 M/mm3 (4.30-5.90); White Blood Cell Count 5.51 K/mm3 (4.00-11.30)
[2021-04-18 04:47] LABS: Albumin, Blood 3.2 g/dL (3.4-5.0); Anion Gap 4 mmol/L (6-16); Blood Urea Nitrogen 27 mg/dL (8-24); CO2, Blood 27 mmol/L (21-32); Calcium, Blood 8.8 mg/dL (8.5-10.1); Chloride, Blood 108 mmol/L (98-108); Creatinine, Blood 1.08 mg/dL (0.60-1.20); Glomerular Filtration Rate >60 (60-); Glucose, Blood 140 mg/dL (70-99); Magnesium, Blood 2.3 mg/dL (1.6-2.4); Phosphorus, Blood 3.7 mg/dL (2.5-4.9); Potassium, Blood 4.2 mmol/L (3.5-5.5); Sodium, Blood 139 mmol/L (136-145)
--- NOTE | 2021-04-18 06:39 | NUR ---
SHIFT SUMMARY: 55 Y/O MALE RESTED COMFORTABLY ALL SHIFT; PTS RIGHT STUMP DRESSING DRY AND INTACT; PT C/O RIGHT LEG PAIN RATED 6/10 WITH PERCOCET PO GIVEN WITH GOOD RELIEF NOTED; BED LOW POSITION WITH CALL LIGHT AT SIDE.
--- NOTE | 2021-04-18 18:18 | NUR ---
SUMMARY MEDICATED W/ PERCOCET Q4 HRS FOR PAIN, UP TO W/C TODAY, TOLERATED WELL, DSG C/D/I, DR. BUSTOS SAW PT TODAY, SLEPT MOST OF THE AFTERNOON, NO ACUTE CHANGES THIS SHIFT.
[2021-04-19 04:52] LABS: BASOPHILS ABSOLUTE AUTO 0.02 K/mm3 (0.00-0.23); BASOPHILS PERCENT AUTO 0 % (0-2); EOSINOPHILS PERCENT AUTO 4 % (0-6); Hematocrit 31.4 % (37.0-53.0); Hemoglobin 10.3 g/dL (13.5-17.5); IMMATURE GRAN ABSOLUTE AUTO 0.02 K/mm3 (0.00-0.10); IMMATURE GRAN PERCENT AUTO 0 % (0-1); LYMPHOCYTES ABSOLUTE AUTO 1.45 K/mm3 (0.84-5.20); LYMPHOCYTES PERCENT AUTO 32 % (21-46); MONOCYTES PERCENT AUTO 9 % (4-13); Mean Corpuscular HGB 26.8 pg (26.0-34.0); Mean Corpuscular HGB Conc 32.8 g/dL (31.5-36.5); Mean Corpuscular Volume 82 fL (80-100); Mean Platelet Volume 9.6 fL (9.1-12.4); NEUTROPHILS ABSOLUTE AUTO 2.43 K/mm3 (1.96-9.15); NEUTROPHILS PERCENT AUTO 54 % (41-73); Platelet Count 115 K/mm3 (150-400); RDW Coefficient Variation 14.3 % (11.7-14.2); Red Blood Cell Count 3.84 M/mm3 (4.30-5.90); White Blood Cell Count 4.52 K/mm3 (4.00-11.30)
[2021-04-19 05:12] LABS: Anion Gap 5 mmol/L (6-16); Blood Urea Nitrogen 20 mg/dL (8-24); Bun/Creatinine Ratio 19.2 (12.0-20.0); CO2, Blood 26 mmol/L (21-32); Chloride, Blood 106 mmol/L (98-108); Creatinine, Blood 1.04 mg/dL (0.60-1.20); Glomerular Filtration Rate >60 (60-); Glucose, Blood 178 mg/dL (70-99); Potassium, Blood 4.2 mmol/L (3.5-5.5); Sodium, Blood 137 mmol/L (136-145)
--- NOTE | 2021-04-19 06:20 | NUR ---
SHIFT SUMMARY POD4 R AKA AMPUTATION, A/O X4, VSS, TOLERATING PO, PAIN MANAGED PER EMAR, PASSING FLATUS, PLAN TO RETURN TO [facility] TODAY. NO ACUTE EVENTS THIS SHIFT. CALL LIGHT IN REACH, WILL CTM AND REPORT TO DAY RN.
[2021-04-19 14:54] LABS: SARS-Cov-2 (COVID-19) PCR, MMC NEGATIVE (NEGATIVE)
--- NOTE | 2021-04-19 18:11 | NUR ---
SHIFT SUMMARY/DISCHARGE POD 4 R AKA AA0X4. PT HAS BEEN UP IN CHAIR IN THE HALLS DURING SHIFT. MOVING WELL. REPORTS PAIN MANAGED PER EMAR. TOLERATING PO WELL. DRESSING TO LEG CDI. PICC LINE PLACED THIS EVENING AND FIRST DOSE INFUSING AT THIS TIME. PLAN IS TO DC FROM HERE TO [facility] FOR IV ABX. PT HAS BELONGINGS PACKED UP AND READY TO GO. CURRENTLY SITTING IN BED EATING AND VISITING WITH A FAMILY MEMBER.
--- NOTE | 2021-04-19 18:24 | NUR ---
REPORT GIVEN TO SIA AT [facility]. AWAITING DISCHARGE AT 1900. PT EATING DINNER AT THIS TIME
== END 2021-04-19 19:00 | DRG 617 ==
LOC: MEDS 11:03 → SURS 11:03 → PRE IP 12:30 → SURS 17:43
PROVIDERS: Family Medicine; ADMIT Orthopaedic Surgery
PROC: 0Y6C0Z1 Detachment at Right Upper Leg, High, Open Approach (ICD-10-PCS; principal; 2021-04-15 14:00)
DX: E11.69 Type 2 diabetes mellitus with other specified complication (principal); M86.8X5 Other osteomyelitis, thigh; K76.6 Portal hypertension; M00.061 Staphylococcal arthritis, right knee; R78.81 Bacteremia; Z20.822 Contact with and (suspected) exposure to COVID-19; I10 Essential (primary) hypertension; B95.62 Methicillin resistant Staphylococcus aureus infection as the cause of diseases classified elsewhere; E11.65 Type 2 diabetes mellitus with hyperglycemia; N40.0 Benign prostatic hyperplasia without lower urinary tract symptoms; K21.9 Gastro-esophageal reflux disease without esophagitis; E78.5 Hyperlipidemia, unspecified; Z87.891 Personal history of nicotine dependence; Z88.8 Allergy status to other drugs, medicaments and biological substances; Z79.01 Long term (current) use of anticoagulants; Z79.899 Other long term (current) drug therapy
CPT/HCPCS: 36415; 36569; 80069; 82947; 83735; 85025; 85651; 86140; 86850; 86900; 86901; 87071; 87075; 87205; 88307; 88311; 94760; 97110; 97162; 97166; 97530; 97535; A9270; C1751; J0171; J0690; J0735; J1100; J1170; J1815; J1885; J2250; J2370; J2405; J2704; J2795; J3010; J3370; J7050; J7120; U0004

== ENCOUNTER → 2021-05-12 | Outpatient (CLI) | payer OTHER ==
[~2021-05-12] MED LIST changes: +INSULANI SC
[2021-05-12 10:38] LABS: Anion Gap 6 mmol/L (6-16); Blood Urea Nitrogen 16 mg/dL (8-24); Bun/Creatinine Ratio 15.5 (12.0-20.0); CO2, Blood 26 mmol/L (21-32); Chloride, Blood 104 mmol/L (98-108); Creatinine, Blood 1.03 mg/dL (0.60-1.20); Glomerular Filtration Rate >60 (60-); Glucose, Blood 200 mg/dL (70-99); Sodium, Blood 136 mmol/L (136-145); Vancomycin, Trough 16.4 ug/mL (5.0-10.0)
== END ==
LOC: LAB UVN 09:00 → EDSTATUS 10:51
PROVIDERS: Internal Medicine
DX: Z47.81 Encounter for orthopedic aftercare following surgical amputation (principal); M86.151 Other acute osteomyelitis, right femur; N15.1 Renal and perinephric abscess
CPT/HCPCS: 80048; 80202

== ENCOUNTER → 2021-05-19 | Outpatient (CLI) | payer OTHER ==
[2021-05-19 10:17] LABS: Anion Gap 10 mmol/L (6-16); Blood Urea Nitrogen 14 mg/dL (8-24); Bun/Creatinine Ratio 14.5 (12.0-20.0); CO2, Blood 23 mmol/L (21-32); Calcium, Blood 8.9 mg/dL (8.5-10.1); Chloride, Blood 101 mmol/L (98-108); Creatinine, Blood 0.97 mg/dL (0.60-1.20); Glomerular Filtration Rate >60 (60-); Glucose, Blood 282 mg/dL (70-99); Potassium, Blood 4.6 mmol/L (3.5-5.5); Sodium, Blood 134 mmol/L (136-145); Vancomycin, Trough 13.6 ug/mL (5.0-10.0)
== END ==
LOC: LAB UVN 08:35 → EDSTATUS 10:51
PROVIDERS: Internal Medicine
DX: Z47.81 Encounter for orthopedic aftercare following surgical amputation (principal); M86.151 Other acute osteomyelitis, right femur
CPT/HCPCS: 80048; 80202

== ENCOUNTER → 2021-05-25 | Outpatient (CLI) | payer OTHER ==
[2021-05-25 10:41] LABS: Anion Gap 7 mmol/L (6-16); Blood Urea Nitrogen 16 mg/dL (8-24); Bun/Creatinine Ratio 15.1 (12.0-20.0); CO2, Blood 24 mmol/L (21-32); Chloride, Blood 104 mmol/L (98-108); Creatinine, Blood 1.06 mg/dL (0.60-1.20); Glomerular Filtration Rate >60 (60-); Glucose, Blood 287 mg/dL (70-99); Potassium, Blood 4.6 mmol/L (3.5-5.5); Sodium, Blood 135 mmol/L (136-145); Vancomycin, Trough 15.5 ug/mL (5.0-10.0)
== END | disposition home or self-care (01) ==
LOC: LAB UVN 09:30 → EDSTATUS 10:35
PROVIDERS: Internal Medicine
DX: Z47.81 Encounter for orthopedic aftercare following surgical amputation (principal); M86.151 Other acute osteomyelitis, right femur
CPT/HCPCS: 80048; 80202

== ENCOUNTER → 2021-05-30 | Outpatient (CLI) | payer OTHER ==
[2021-05-30 22:09] LABS: Anion Gap 6 mmol/L (6-16); Blood Urea Nitrogen 18 mg/dL (8-24); Bun/Creatinine Ratio 15.5 (12.0-20.0); CO2, Blood 27 mmol/L (21-32); Chloride, Blood 103 mmol/L (98-108); Creatinine, Blood 1.16 mg/dL (0.60-1.20); Glomerular Filtration Rate >60 (60-); Glucose, Blood 274 mg/dL (70-99); Potassium, Blood 4.2 mmol/L (3.5-5.5); Sodium, Blood 136 mmol/L (136-145)
== END | disposition home or self-care (01) ==
LOC: EDSTATUS 10:37 → LAB UVN 21:37
PROVIDERS: Internal Medicine
DX: Z47.81 Encounter for orthopedic aftercare following surgical amputation (principal); M86.151 Other acute osteomyelitis, right femur
CPT/HCPCS: 80048; 80202

== ENCOUNTER → 2021-07-12 | Outpatient (CLI) | payer OTHER | END | disposition home or self-care (01) | LOC: LAB 19:03 → LAB SHORT 19:03 | DX: H60.12 Cellulitis of left external ear (principal) | CPT/HCPCS: 87070; 87075; 87077; 87186; 87205 ==

== ENCOUNTER 2022-10-31 09:54 | Inpatient (IN) | payer OTHER ==
[~2022-10-31] VITALS: Ht 185.4 cm; Wt 88.2 kg
[~2022-10-31 09:54] MED LIST changes: +LIDO700A20 TOP; +Robaxin750 MG PO
[2022-10-31 10:37] LABS: Source, Urine Clean Catch
[2022-10-31 10:40] LABS: Appearance, Urine Cloudy (Clear); Bilirubin, Urine Neg (Neg); Blood, Urine 4+ (Neg); Color, Urine Yellow (P-Yellow); Glucose Qualitative, Urine 4+ (Neg); Ketones, Urine 3+ (Neg); Leukocyte Esterase, Urine 3+ (Neg); Nitrite, Urine Pos (Neg); Protein, Urine 3+ (Neg); Urobilinogen, Urine NORM (Normal)
[2022-10-31 10:42] LABS: BASOPHILS ABSOLUTE AUTO 0.05 K/mm3 (0.00-0.23); BASOPHILS PERCENT AUTO 1 % (0-2); EOSINOPHILS ABSOLUTE AUTO 0.01 K/mm3 (0.00-0.68); EOSINOPHILS PERCENT AUTO 0 % (0-6); Hematocrit 38.8 % (37.0-53.0); Hemoglobin 13.4 g/dL (13.5-17.5); IMMATURE GRAN ABSOLUTE AUTO 0.11 K/mm3 (0.00-0.10); IMMATURE GRAN PERCENT AUTO 1 % (0-1); LYMPHOCYTES ABSOLUTE AUTO 0.51 K/mm3 (0.84-5.20); LYMPHOCYTES PERCENT AUTO 5 % (21-46); MONOCYTES PERCENT AUTO 9 % (4-13); Mean Corpuscular HGB 27.9 pg (26.0-34.0); Mean Corpuscular HGB Conc 34.5 g/dL (31.5-36.5); Mean Corpuscular Volume 81 fL (80-100); Mean Platelet Volume 9.8 fL (9.1-12.4); NEUTROPHILS ABSOLUTE AUTO 8.38 K/mm3 (1.96-9.15); NEUTROPHILS PERCENT AUTO 84 % (41-73); Platelet Count 207 K/mm3 (150-400); RDW Coefficient Variation 14.4 % (11.7-14.2); RDW Standard Deviation 42.5 fL (35.1-46.3); Red Blood Cell Count 4.81 M/mm3 (4.30-5.90); White Blood Cell Count 9.96 K/mm3 (4.00-11.30)
[2022-10-31 11:08] LABS: Bacteria Mod /hpf; Red Blood Cells, Urine TNTC /hpf (0-2); Squamous Epithelial Cells Rare /hpf (Few); White Blood Cells, Urine TNTC /hpf (0-5)
[2022-10-31 12:25] LABS: Albumin, Blood 2.9 g/dL (3.4-5.0); Albumin/Globulin Ratio 0.6 (0.8-1.8); Bilirubin, Total 1.3 mg/dL (0.1-1.0); Bun/Creatinine Ratio 25.6 (12.0-20.0); Calcium, Blood 9.2 mg/dL (8.5-10.1); Creatinine, Blood 1.21 mg/dL (0.60-1.20); Globulin, Blood 4.8 g/dL (2.2-4.0); Potassium, Blood 4.1 mmol/L (3.5-5.5); Total Protein, Blood 7.7 g/dL (6.4-8.2)
[2022-10-31 14:50] LABS: Source, Urine Foley catheter
[2022-10-31 15:06] LABS: Appearance, Urine Cloudy (Clear); Bilirubin, Urine Neg (Neg); Blood, Urine 4+ (Neg); Glucose Qualitative, Urine 4+ (Neg); Ketones, Urine 3+ (Neg); Leukocyte Esterase, Urine 3+ (Neg); Nitrite, Urine Pos (Neg); Protein, Urine 2+ (Neg); Specific Gravity, Urine 1.015 (1.003-1.022); Urobilinogen, Urine NORM (Normal)
[2022-10-31 15:23] LABS: Color, Urine Pale Yellow (P-Yellow)
[2022-10-31 15:35] LABS: Bacteria Many /hpf; Mucus Light (0-Heavy); Red Blood Cells, Urine 0-2 /hpf (0-2); Squamous Epithelial Cells Rare /hpf (Few); White Blood Cells, Urine TNTC /hpf (0-5)
[2022-10-31 16:00] LABS: PCO2 Venous 24.3 mmHg (38-42)
[2022-10-31 16:14] LABS: Glucose, Blood 411 mg/dL (70-99)
[2022-10-31 17:47] LABS: Influenza A, PCR NEGATIVE (NEGATIVE); Influenza B, PCR NEGATIVE (NEGATIVE); Resp Syncytial Virus, PCR NEGATIVE (NEGATIVE); SARS-Cov-2 (COVID-19) PCR, MMC NEGATIVE (NEGATIVE)
[2022-10-31 18:58] LABS: Albumin, Blood 2.5 g/dL (3.4-5.0); Albumin/Globulin Ratio 0.5 (0.8-1.8); Bilirubin, Total 1.1 mg/dL (0.1-1.0); Bun/Creatinine Ratio 28.3 (12.0-20.0); Calcium, Blood 8.4 mg/dL (8.5-10.1); Creatinine, Blood 1.13 mg/dL (0.60-1.20); Globulin, Blood 4.6 g/dL (2.2-4.0); Total Protein, Blood 7.1 g/dL (6.4-8.2)
[2022-10-31 19:00] LABS: International Normalized Ratio 1.26
[2022-10-31 19:11] LABS: BASOPHILS ABSOLUTE AUTO 0.04 K/mm3 (0.00-0.23); BASOPHILS PERCENT AUTO 1 % (0-2); EOSINOPHILS ABSOLUTE AUTO 0.03 K/mm3 (0.00-0.68); EOSINOPHILS PERCENT AUTO 1 % (0-6); Hematocrit 38.9 % (37.0-53.0); Hemoglobin 13.3 g/dL (13.5-17.5); IMMATURE GRAN ABSOLUTE AUTO 0.11 K/mm3 (0.00-0.10); IMMATURE GRAN PERCENT AUTO 2 % (0-1); LYMPHOCYTES PERCENT AUTO 8 % (21-46); MONOCYTES ABSOLUTE AUTO 0.57 K/mm3 (0.16-1.47); MONOCYTES PERCENT AUTO 9 % (4-13); Mean Corpuscular HGB 28.1 pg (26.0-34.0); Mean Corpuscular HGB Conc 34.2 g/dL (31.5-36.5); Mean Corpuscular Volume 82 fL (80-100); NEUTROPHILS ABSOLUTE AUTO 5.22 K/mm3 (1.96-9.15); NEUTROPHILS PERCENT AUTO 81 % (41-73); RDW Coefficient Variation 14.6 % (11.7-14.2); RDW Standard Deviation 43.6 fL (35.1-46.3); Red Blood Cell Count 4.73 M/mm3 (4.30-5.90); White Blood Cell Count 6.47 K/mm3 (4.00-11.30)
[2022-10-31 19:37] LABS: Mean Platelet Volume 10.4 fL (9.1-12.4); Platelet Count 141 K/mm3 (150-400)
[2022-11-01 04:17] LABS: BASOPHILS ABSOLUTE AUTO 0.02 K/mm3 (0.00-0.23); BASOPHILS PERCENT AUTO 0 % (0-2); EOSINOPHILS ABSOLUTE AUTO 0.01 K/mm3 (0.00-0.68); EOSINOPHILS PERCENT AUTO 0 % (0-6); Hematocrit 35.7 % (37.0-53.0); Hemoglobin 12.4 g/dL (13.5-17.5); IMMATURE GRAN ABSOLUTE AUTO 0.05 K/mm3 (0.00-0.10); IMMATURE GRAN PERCENT AUTO 1 % (0-1); LYMPHOCYTES ABSOLUTE AUTO 0.63 K/mm3 (0.84-5.20); LYMPHOCYTES PERCENT AUTO 9 % (21-46); MONOCYTES ABSOLUTE AUTO 0.67 K/mm3 (0.16-1.47); MONOCYTES PERCENT AUTO 10 % (4-13); Mean Corpuscular HGB 27.8 pg (26.0-34.0); Mean Corpuscular HGB Conc 34.7 g/dL (31.5-36.5); Mean Corpuscular Volume 80 fL (80-100); Mean Platelet Volume 9.8 fL (9.1-12.4); NEUTROPHILS ABSOLUTE AUTO 5.66 K/mm3 (1.96-9.15); NEUTROPHILS PERCENT AUTO 81 % (41-73); Platelet Count 189 K/mm3 (150-400); RDW Coefficient Variation 14.4 % (11.7-14.2); RDW Standard Deviation 41.8 fL (35.1-46.3); Red Blood Cell Count 4.46 M/mm3 (4.30-5.90); White Blood Cell Count 7.04 K/mm3 (4.00-11.30)
--- NOTE | 2022-11-01 04:59 | NUR ---
ARRIVAL TO [facility]/SHIFT SUMMARY PT ARRIVED TO [facility] AT APPROXIMATELY 2030. PT WAS SLID OVER FROM ER GURNEY TO HOSPITAL BED BY 4 CLINIAL STAFF MEMBERS. PT A&Ox3, APPROPRIATELY STATES WHERE HE IS AND WHY HE CAME TO HOSPITAL, WELL DATE/TIME. BUT HAS ODD STATEMENTS, MOMENTS OF CONFUSION, AND HAS TO BE REDIRECTED TO NOT PULL ON TELE/IV/DODGE. VSS, BP ELEVATED WITH SBP 140-150's, 170's AT 0400 VS, MANAGED PER EMAR. SINUS TACH 100-110's AT ARRIVAL, PT HAD MOMENTS OF TACHING UP TO 170's, PT ASYMPTOMATIC/BP STABLE, PHYSICIAN NOTIFIED, ORDERS PLACED. PT NOW SUSTAINING AROUND 120's. SpO2> 92% RA, DENIES SOB. PT VERY RESTLESS IN BED, CONSTANTLY REPOSITIONING HIMSELF. DODGE CATHETER IN PLACE, PATENT, DRAINING TO GRAVITY. PT DID NOT SLEEP MUCH AT ALL. COMPLAINTS OF LEFT WRIST PAIN D/T FALL BEFORE COMING TO HOSPITAL, LEFT WRIST IS SLIGHTLY SWOLLEN, ICE PACK PROVIDED, PAIN MANAGEMENT PER EMAR. NO OTHER EVENTS, WILL REPORT TO ONCOMING RN.
--- NOTE | 2022-11-01 07:30 | NUR ---
INITIAL ASSESSMENT: Patient is awake and lying on his right side in bed. He is very restless, c/o discomfort from the grant cath. He is alert and oriented x4. HR, ST in the 110-120s, with some runs of SVT up into the 180s-the patient is asymptomatic. LS CTA, Biox is 100% on RA. BT+. He has a right AKA, there is a red rasied rash to his stump. 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 Mepilex placed to the left heel as well for prevention. VSS. AM Meds given at this time. Call light in reach, will continue to monitor.
[2022-11-01 09:11] LABS: Albumin, Blood 2.6 g/dL (3.4-5.0); Albumin/Globulin Ratio 0.6 (0.8-1.8); Bilirubin, Total 0.9 mg/dL (0.1-1.0); Bun/Creatinine Ratio 28.7 (12.0-20.0); Calcium, Blood 8.7 mg/dL (8.5-10.1); Creatinine, Blood 1.01 mg/dL (0.60-1.20); Globulin, Blood 4.3 g/dL (2.2-4.0); Magnesium, Blood 1.9 mg/dL (1.6-2.4); Potassium, Blood 3.9 mmol/L (3.5-5.5); Total Protein, Blood 6.9 g/dL (6.4-8.2)
--- NOTE | 2022-11-01 12:30 | NUR ---
UPDATE: VSS. Patient has been resting comfortably. PT came to work with the patient and stated the patient isn't as oriented as he was this morning. He is oriented to self and he is able to tell me who the president is, however he keeps telling me "wait" in response to the other questions and he falls back asleep. When looking through the chart, this RN noticed the patients urine cultures came back positive for MRSA, pt placed in contact isolation with splash precautions. Also pts second set of blood cultures came back positive for gram positivie cocci in clusters, which is identical to the first set. Patient is resting comfortably at this time and denies other needs. Bed alarm on for safety, call light in reach.
--- NOTE | 2022-11-01 14:30 | NUR ---
Update: After bathing patient axillary temp taken 99.5, pt feels warm. Rectal temp probe placed, pts temp is 103.8. Tylenol given, covers removed, and temp in room turned all the way down. Call light in reach, bed alarm on for safety.
[2022-11-01 17:24] LABS: U Amphetamine Screen Not Detected; U Barbituate Screen Not Detected; U Benzodiazapine Screen Not Detected; U Buprenorphine Screen Not Detected; U Cannabinoids Screen Not Detected; U Cocaine Screen Not Detected; U Methadone Screen Not Detected; U Methamphetamine Screen Not Detected; U Opiates Screen Not Detected; U Oxycodone Screen DETECTED; U Phencyclidine Screen Not Detected; U Propoxyphene Screen Not Detected
--- NOTE | 2022-11-01 17:55 | NUR ---
SUMMARY: Patient has been resting the majority of the shift. At the beginning of the shift he was more oriented as the shift progressed he has been confused and more sleepy. He has been continously pulling at lines and his gown. This afternoon after placing a rectal probe the patients temperature was noted to be 103.8, after some Tylenol and ice packs to the neck and axillary, his temp is down to 101.8. HR has been sinus tach in the low 100s. This morning he was having runs of non-symptomatic SVT up into the 180s, these resolved after the patient was given his home dose of Metoprolol. LS CTA, Biox has been high 90s for the duration of the shift. BT+, he has not had a BM this shift. He has a grant cath in place, patent and draining clear yellow urine, tox screen sent this shift was good. Both of patients blood cultures were positive with gram positive cocci in clusters and his urinary cultures grew MRSA-pt is now in contact isolation. Pt was able to get to the edge of the bed with PT this shift, but he then became nauseated. He has a right AKA with a red rash and a coccyx wound-pics in the chart, mepilex in place and patient has been repositioning himself in bed. Egg crate placed on the bed for added comfort. No other changes this shift. Will report to oncoming RN.
--- NOTE | 2022-11-02 04:38 | NUR ---
SHIFT SUMMARY PT A&Ox3, APPROPRIATELY STATES WHERE HE IS AND WHY HE CAME TO HOSPITAL, WELL DATE/TIME. BUT HAS ODD STATEMENTS, MOMENTS OF CONFUSION, NOT PULLING ON TELE/IV/DODGE MUCH THIS SHIFT. VSS, BP STABLE, SR-ST 80-110's, DENIES CP/PRESSURE. SpO2> 92% RA, DENIES SOB. RECTAL TEMP AT START OF SHIFT WAS 102.4, ICE PACKS PLACED AND TYLENOL PROVIDED, TEMP NOW 99.5. PT RESTLESS IN BED AT TIMES DODGE CATHETER IN PLACE, PATENT, DRAINING TO GRAVITY. COMPLAINTS OF LEFT WRIST PAIN D/T FALL BEFORE COMING TO HOSPITAL, LEFT WRIST IS SLIGHTLY SWOLLEN, ICE PACK PROVIDED, PAIN MANAGEMENT PER EMAR. NO OTHER EVENTS, WILL REPORT TO ONCOMING RN.
--- NOTE | 2022-11-02 07:30 | NUR ---
INITIAL ASSESSMENT: Patient is alert and oriented to self and year. He is asking me if we are in [place] or [place], pt is reoriented. Patient is restless and does not verbalize discomfort well unless he is asked direct questions. Patient is medicated with Tylenol for pain in the left wrist and fever-temp is 100.4 this AM. HRR, SR in the 90s-110- with one run of SVT up into the 130s-he is medicated with morning dose of Metoprolol. LS CTA, Biox is 98% on RA. BT+, non-tender to light palpation. Morrison cath patent and draining clear yellow urine-bladder training initiated. Pt has rash to right AKA looks better than yesterday. Coccyx wound with mepilex in place, CDI. AM meds given with a sip of water. Patient deneis further needs at this time. Call light in reach.
[2022-11-02 08:00] LABS: BASOPHILS ABSOLUTE AUTO 0.01 K/mm3 (0.00-0.23); BASOPHILS PERCENT AUTO 0 % (0-2); EOSINOPHILS ABSOLUTE AUTO 0.02 K/mm3 (0.00-0.68); EOSINOPHILS PERCENT AUTO 0 % (0-6); Hematocrit 33.6 % (37.0-53.0); Hemoglobin 11.7 g/dL (13.5-17.5); IMMATURE GRAN ABSOLUTE AUTO 0.05 K/mm3 (0.00-0.10); IMMATURE GRAN PERCENT AUTO 1 % (0-1); LYMPHOCYTES ABSOLUTE AUTO 0.82 K/mm3 (0.84-5.20); LYMPHOCYTES PERCENT AUTO 17 % (21-46); MONOCYTES ABSOLUTE AUTO 0.49 K/mm3 (0.16-1.47); MONOCYTES PERCENT AUTO 10 % (4-13); Mean Corpuscular HGB 28.2 pg (26.0-34.0); Mean Corpuscular HGB Conc 34.8 g/dL (31.5-36.5); Mean Corpuscular Volume 81 fL (80-100); Mean Platelet Volume 10.1 fL (9.1-12.4); NEUTROPHILS ABSOLUTE AUTO 3.58 K/mm3 (1.96-9.15); NEUTROPHILS PERCENT AUTO 72 % (41-73); Platelet Count 172 K/mm3 (150-400); RDW Coefficient Variation 14.6 % (11.7-14.2); RDW Standard Deviation 43.1 fL (35.1-46.3); Red Blood Cell Count 4.15 M/mm3 (4.30-5.90); White Blood Cell Count 4.97 K/mm3 (4.00-11.30)
[2022-11-02 08:27] LABS: Anion Gap 12 mmol/L (6-16); Blood Urea Nitrogen 28 mg/dL (8-24); Bun/Creatinine Ratio 30.2 (12.0-20.0); CO2, Blood 20 mmol/L (21-32); Calcium, Blood 8.2 mg/dL (8.5-10.1); Chloride, Blood 105 mmol/L (98-108); Creatinine, Blood 0.93 mg/dL (0.60-1.20); Glomerular Filtration Rate 95 (60-); Glucose, Blood 226 mg/dL (70-99); Potassium, Blood 3.7 mmol/L (3.5-5.5); Sodium, Blood 137 mmol/L (136-145); Vancomycin, Trough 24.1 ug/mL (5.0-10.0)
--- NOTE | 2022-11-02 14:23 | NUR ---
After receiving a request for spiritual care, I visited patient. He immediately told me that he wants to and he has felt that way for several years. He states that he started dealing with this deep depression when his leg was amputated. I asked him what has been his strength and drive to make it all these years while carrying this emotional weight and he stopped talking or answering questions. He then asked for help getting an RN because he needs to go to the bathroom immediately. His RN Dinorah responded quickly to assist him. His physical needs may have been the cause for the emotional shut down or it may be something more. I will return another time and explore if patient would like to talk further. It seems the patient might be beneficial for a Psych Consult to be ordered.
--- NOTE | 2022-11-02 15:05 | NUR ---
UPDATE: No acute chages this shift. Patient has been down graded to medical status with telemetry. Patients temperature is starting to climb again despite tylenol being given, temp currently 101.2. Report given to Hugo OSORIO.
[2022-11-02 17:58] LABS: C DIFFICILE DNA POSITIVE (Negative)
--- NOTE | 2022-11-03 05:40 | NUR ---
SHIFT SUMMARY ASSUMED CARE OF PT AT 1900. PT IS A/OX3-4. PT STARTED THE SHIFT OFF BY CRYING OUT THAT HE WAS IN PAIN. PT WAS MEDICATE PER EMAR AND CALMED DOWN. PT STILL COMPLAINS OF DISCOMFORT BUT USES CALL LIGHT APPROPIATLY. HEART SOUNDS REGULAR. PT TACHY WITH PAIN. LUNG SOUNDS CLEAR. PT L FOOT HAD WEAK PULSE. PT USED URINAL AT BEDSIDE. PT HOPES TO GET UP INTO A CHAIR TODAY. PT DID NOT SLEEP VERY WELL THIS NOC.
[2022-11-03 06:28] LABS: BASOPHILS ABSOLUTE AUTO 0.02 K/mm3 (0.00-0.23); BASOPHILS PERCENT AUTO 0 % (0-2); EOSINOPHILS ABSOLUTE AUTO 0.03 K/mm3 (0.00-0.68); EOSINOPHILS PERCENT AUTO 0 % (0-6); Hematocrit 32.6 % (37.0-53.0); Hemoglobin 11.3 g/dL (13.5-17.5); Mean Corpuscular HGB 27.8 pg (26.0-34.0); Mean Corpuscular HGB Conc 34.7 g/dL (31.5-36.5); Mean Corpuscular Volume 80 fL (80-100); Mean Platelet Volume 9.8 fL (9.1-12.4); Platelet Count 183 K/mm3 (150-400); RDW Coefficient Variation 14.4 % (11.7-14.2); RDW Standard Deviation 42.1 fL (35.1-46.3); Red Blood Cell Count 4.07 M/mm3 (4.30-5.90); White Blood Cell Count 6.87 K/mm3 (4.00-11.30)
[2022-11-03 06:30] LABS: IMMATURE GRAN ABSOLUTE AUTO 0.07 K/mm3 (0.00-0.10); IMMATURE GRAN PERCENT AUTO 1 % (0-1); LYMPHOCYTES ABSOLUTE AUTO 1.16 K/mm3 (0.84-5.20); LYMPHOCYTES PERCENT AUTO 17 % (21-46); MONOCYTES ABSOLUTE AUTO 0.54 K/mm3 (0.16-1.47); MONOCYTES PERCENT AUTO 8 % (4-13); NEUTROPHILS ABSOLUTE AUTO 5.05 K/mm3 (1.96-9.15); NEUTROPHILS PERCENT AUTO 74 % (41-73)
[2022-11-03 06:47] LABS: Bun/Creatinine Ratio 26.2 (12.0-20.0); Creatinine, Blood 0.84 mg/dL (0.60-1.20); Potassium, Blood 3.5 mmol/L (3.5-5.5)
--- NOTE | 2022-11-03 18:08 | NUR ---
SHIFT SUMMARY PATIENT ALERT AND ORIENTED X4. HAD NO COMPLAINTS OF PAIN OR SHORTNESS OF BREATH. NO ACUTE ISSUES NOTED THIS SHIFT. CALL LIGHT WITHIN REACH.
--- NOTE | 2022-11-04 05:16 | NUR ---
SHIFT SUMMARY ASSUMED CARE OF PT AT 1900. PT IS A/OX2-3 WITH TIMES OF CONFUSION T/O THE NIGHT. AT 0430 PT HAD PULLED OUT IV AND SOILED THE BED. PT SAID HE DOESNT KNOW WHY OR WHAT HAPPENED. HEART SOUNDS REGULAR. LUNG SOUNDS CLEAR. PT REMAINED ON RA. PT AFFECT IS FLAT AND WITHDRAWN.
[2022-11-04 06:36] LABS: BASOPHILS ABSOLUTE AUTO 0.02 K/mm3 (0.00-0.23); BASOPHILS PERCENT AUTO 0 % (0-2); EOSINOPHILS ABSOLUTE AUTO 0.02 K/mm3 (0.00-0.68); EOSINOPHILS PERCENT AUTO 0 % (0-6); Hematocrit 31.9 % (37.0-53.0); Hemoglobin 11.1 g/dL (13.5-17.5); Mean Corpuscular HGB 28.2 pg (26.0-34.0); Mean Corpuscular HGB Conc 34.8 g/dL (31.5-36.5); Mean Corpuscular Volume 81 fL (80-100); Platelet Count 230 K/mm3 (150-400); RDW Coefficient Variation 14.3 % (11.7-14.2); RDW Standard Deviation 42.4 fL (35.1-46.3); Red Blood Cell Count 3.93 M/mm3 (4.30-5.90); White Blood Cell Count 7.33 K/mm3 (4.00-11.30)
[2022-11-04 06:37] LABS: IMMATURE GRAN ABSOLUTE AUTO 0.14 K/mm3 (0.00-0.10); IMMATURE GRAN PERCENT AUTO 2 % (0-1); LYMPHOCYTES ABSOLUTE AUTO 1.72 K/mm3 (0.84-5.20); LYMPHOCYTES PERCENT AUTO 24 % (21-46); MONOCYTES ABSOLUTE AUTO 0.64 K/mm3 (0.16-1.47); MONOCYTES PERCENT AUTO 9 % (4-13); NEUTROPHILS ABSOLUTE AUTO 4.79 K/mm3 (1.96-9.15); NEUTROPHILS PERCENT AUTO 65 % (41-73)
[2022-11-04 06:53] LABS: Bun/Creatinine Ratio 18.4 (12.0-20.0); Calcium, Blood 7.8 mg/dL (8.5-10.1); Creatinine, Blood 0.87 mg/dL (0.60-1.20); Potassium, Blood 3.4 mmol/L (3.5-5.5)
--- NOTE | 2022-11-04 18:10 | NUR ---
SHIFT SUMMARY PATIENT ALERT AND ORIENTED X3-4. MEDICATED PER EMAR FOR PAIN. HAD NO COMPLAINTS OF SHORTNESS OF BREATH. REPORT GIVEN TO RECEIVING NURSE DICK GLOVER RN, ON MEDICAL FOR TRANSFER.
[2022-11-04 20:51] LABS: Vancomycin, Trough 16.7 ug/mL (5.0-10.0)
--- NOTE | 2022-11-05 03:10 | NUR ---
Patient resting in bed, no complaints of pain or discomfort.
[2022-11-05 08:43] LABS: BASOPHILS ABSOLUTE AUTO 0.02 K/mm3 (0.00-0.23); BASOPHILS PERCENT AUTO 0 % (0-2); EOSINOPHILS ABSOLUTE AUTO 0.04 K/mm3 (0.00-0.68); EOSINOPHILS PERCENT AUTO 1 % (0-6); Hematocrit 31.3 % (37.0-53.0); Hemoglobin 10.8 g/dL (13.5-17.5); IMMATURE GRAN ABSOLUTE AUTO 0.14 K/mm3 (0.00-0.10); IMMATURE GRAN PERCENT AUTO 2 % (0-1); LYMPHOCYTES ABSOLUTE AUTO 1.95 K/mm3 (0.84-5.20); LYMPHOCYTES PERCENT AUTO 26 % (21-46); MONOCYTES ABSOLUTE AUTO 0.58 K/mm3 (0.16-1.47); MONOCYTES PERCENT AUTO 8 % (4-13); Mean Corpuscular HGB 28.1 pg (26.0-34.0); Mean Corpuscular HGB Conc 34.5 g/dL (31.5-36.5); Mean Corpuscular Volume 82 fL (80-100); Mean Platelet Volume 9.5 fL (9.1-12.4); NEUTROPHILS ABSOLUTE AUTO 4.68 K/mm3 (1.96-9.15); NEUTROPHILS PERCENT AUTO 63 % (41-73); Platelet Count 266 K/mm3 (150-400); RDW Coefficient Variation 14.5 % (11.7-14.2); RDW Standard Deviation 42.8 fL (35.1-46.3); Red Blood Cell Count 3.84 M/mm3 (4.30-5.90); White Blood Cell Count 7.41 K/mm3 (4.00-11.30)
--- NOTE | 2022-11-05 18:14 | NUR ---
SHIFT SUMMARY: PT ALERT AND ORIENTED X3-4. PT PLEASANT AND COOPERATIVE WITH ALL CARE. WHEN I WALKED INTO PT ROOM THIS AM, HE STATED HE WAS WANTED TO LEAVE AND APPEARED TO HAVE SOME DEPRESSION. DR. ALAMO CAME TO TALK TO PT ABOUT WHY IT WAS IMPERATIVE TO STAY IN THE HOSPITAL. PT HAS BEEN CONTINENT OF URINE WITH URINAL ALL SHIFT. PT HAD INCONTINENT, LARGE BM THIS SHIFT. PT STATED COUSIN FOUND HIM A SNF THAT APPROVED HIM BUT HAVE NOT BEEN ABLE TO CONFIRM THIS INFORMATION. CALL LIGHT IN REACH. BED IN LOWEST POSITION. WILL CONTINUE TO MONITOR.
--- NOTE | 2022-11-05 23:11 | NUR ---
ATTEMPTED TO CALL CONSULT BUT IR NOT AVAILABLE UNTIL 11/08/22. F/U AND CONSULT WILL NEED TO BE CALLED AT THAT TIME.
[2022-11-06 09:28] LABS: BASOPHILS ABSOLUTE AUTO 0.02 K/mm3 (0.00-0.23); BASOPHILS PERCENT AUTO 0 % (0-2); EOSINOPHILS ABSOLUTE AUTO 0.04 K/mm3 (0.00-0.68); EOSINOPHILS PERCENT AUTO 1 % (0-6); Hematocrit 30.7 % (37.0-53.0); Hemoglobin 10.4 g/dL (13.5-17.5); IMMATURE GRAN ABSOLUTE AUTO 0.09 K/mm3 (0.00-0.10); IMMATURE GRAN PERCENT AUTO 1 % (0-1); LYMPHOCYTES ABSOLUTE AUTO 1.78 K/mm3 (0.84-5.20); LYMPHOCYTES PERCENT AUTO 28 % (21-46); MONOCYTES ABSOLUTE AUTO 0.54 K/mm3 (0.16-1.47); MONOCYTES PERCENT AUTO 9 % (4-13); Mean Corpuscular HGB Conc 33.9 g/dL (31.5-36.5); Mean Corpuscular Volume 83 fL (80-100); Mean Platelet Volume 9.6 fL (9.1-12.4); NEUTROPHILS ABSOLUTE AUTO 3.88 K/mm3 (1.96-9.15); NEUTROPHILS PERCENT AUTO 61 % (41-73); Platelet Count 283 K/mm3 (150-400); RDW Coefficient Variation 14.6 % (11.7-14.2); RDW Standard Deviation 43.1 fL (35.1-46.3); Red Blood Cell Count 3.72 M/mm3 (4.30-5.90); White Blood Cell Count 6.35 K/mm3 (4.00-11.30)
[2022-11-06 09:42] LABS: Bun/Creatinine Ratio 14.6 (12.0-20.0); Calcium, Blood 7.7 mg/dL (8.5-10.1); Creatinine, Blood 0.82 mg/dL (0.60-1.20); Potassium, Blood 3.7 mmol/L (3.5-5.5)
[2022-11-06 09:45] LABS: Vancomycin, Trough 15.9 ug/mL (5.0-10.0)
--- NOTE | 2022-11-06 17:48 | NUR ---
SHIFT SUMMARY: PT ALERT AND ORIENTED X3-4. PT APPEARED DISTANT/DEPRESSED THIS SHIFT. PT HAD SEVERAL LOOSE, LARGE BOWEL MOVEMENTS THIS SHIFT. PT BOTTOM AND LIA AREA RED DUE TO ACIDIC LOOKING/SMELLING FECES. CALLED DR. BUCK WHO PUT IN AN ORDER FOR NYSTATIN POWDER TID STARTING TONIGHT. INSULIN DOSAGE CHANGED TODAY WITH SHORT AND LONG ACTING. PT HAD A BS OF [address] Weebr AWARE. PT NEEDS IR CONSULT DUE TO RING ENHANCING LESIONS IN ABD/PELVIS. NO DOC FOR IR BIG DATA SOFTWARE ENGINEER UNTIL MONDAY. PT HAD NO COMPLAINS OF PAIN OR N/V THIS SHIFT. CALL LIGHT IN REACH. BED IN LOWEST POSITION. WILL CONTINUE TO MONITOR.
--- NOTE | 2022-11-07 05:14 | NUR ---
SUMMARY: NO ACUTE EVENTS OVERNIGHT. PATIENT HAVING FREQUENT LOOSE MUCUS STOOLS. VOIDING IN URINAL. PATIENT TURNING HIMSELF IN BED. GROIN/BUTTOCKS RED AND EXCORIATED. BARRIER CREAM APPLIED TO BUTTOCKS, NYSTATIN POWDER APPLIED TO GROIN. VSS. CALL LIGHT IN REACH. PLAN FOR IR CONSULT ONCE AVAILABLE 09/08.
[2022-11-07 05:52] LABS: BASOPHILS ABSOLUTE AUTO 0.02 K/mm3 (0.00-0.23); BASOPHILS PERCENT AUTO 0 % (0-2); EOSINOPHILS ABSOLUTE AUTO 0.03 K/mm3 (0.00-0.68); EOSINOPHILS PERCENT AUTO 1 % (0-6); Hematocrit 30.5 % (37.0-53.0); Hemoglobin 10.1 g/dL (13.5-17.5); IMMATURE GRAN ABSOLUTE AUTO 0.08 K/mm3 (0.00-0.10); IMMATURE GRAN PERCENT AUTO 2 % (0-1); LYMPHOCYTES ABSOLUTE AUTO 1.29 K/mm3 (0.84-5.20); LYMPHOCYTES PERCENT AUTO 24 % (21-46); MONOCYTES ABSOLUTE AUTO 0.48 K/mm3 (0.16-1.47); MONOCYTES PERCENT AUTO 9 % (4-13); Mean Corpuscular HGB 27.7 pg (26.0-34.0); Mean Corpuscular HGB Conc 33.1 g/dL (31.5-36.5); Mean Corpuscular Volume 84 fL (80-100); Mean Platelet Volume 9.3 fL (9.1-12.4); NEUTROPHILS ABSOLUTE AUTO 3.43 K/mm3 (1.96-9.15); NEUTROPHILS PERCENT AUTO 64 % (41-73); Platelet Count 289 K/mm3 (150-400); RDW Coefficient Variation 14.6 % (11.7-14.2); RDW Standard Deviation 44.6 fL (35.1-46.3); Red Blood Cell Count 3.64 M/mm3 (4.30-5.90); White Blood Cell Count 5.33 K/mm3 (4.00-11.30)
[2022-11-07 05:53] LABS: International Normalized Ratio 1.24; Prothrombin Time Results 12.8 Sec (9.7-11.5)
[2022-11-07 07:19] LABS: Albumin, Blood 2.1 g/dL (3.4-5.0); Albumin/Globulin Ratio 0.4 (0.8-1.8); Bun/Creatinine Ratio 13.5 (12.0-20.0); Calcium, Blood 8.1 mg/dL (8.5-10.1); Creatinine, Blood 0.81 mg/dL (0.60-1.20); Potassium, Blood 3.9 mmol/L (3.5-5.5); Total Protein, Blood 7.1 g/dL (6.4-8.2)
--- NOTE | 2022-11-07 19:19 | NUR ---
PT ALERT, RESTING IN BED. NO S/S OF ACUTE DISTRESS, SAFETY MEASURES IN PLACE REPORT GIVEN TO ON COMING NURSE.
[2022-11-07 21:51] LABS: Vancomycin, Trough 16.2 ug/mL (5.0-10.0)
--- NOTE | 2022-11-08 04:46 | NUR ---
SUMMARY: NO ACUTE EVENTS OVERNIGHT. PATIENT ABLE TO TURN HIMSELF IN BED. NPO SINCE MIDNIGHT FOR IR CONSULTATION TODAY. IV ABX GIVEN. VSS. PATIENT GROIN/ BUTTOCKS RED, APPLIED CREAM AND NYSTATIN POWDER NEEDED. LESS LIQUID STOOL THIS EVENING. SKIN IMPROVING ON BUTTOCKS. MEDICATED FOR PAIN PER EMAR. CALL LIGHT IN REACH.
[2022-11-08 05:36] LABS: Hematocrit 31.1 % (37.0-53.0); Hemoglobin 10.1 g/dL (13.5-17.5)
[2022-11-08 05:49] LABS: Albumin, Blood 2.2 g/dL (3.4-5.0); Anion Gap 6 mmol/L (6-16); Blood Urea Nitrogen 13 mg/dL (8-24); Bun/Creatinine Ratio 11.5 (12.0-20.0); CO2, Blood 23 mmol/L (21-32); Calcium, Blood 8.3 mg/dL (8.5-10.1); Chloride, Blood 103 mmol/L (98-108); Creatinine, Blood 1.13 mg/dL (0.60-1.20); Glomerular Filtration Rate 75 (60-); Glucose, Blood 230 mg/dL (70-99); Phosphorus, Blood 3.1 mg/dL (2.5-4.9); Sodium, Blood 132 mmol/L (136-145)
--- NOTE | 2022-11-08 19:54 | NUR ---
PT RESTING IN BED NO S/S OF DISTRESS, SAFETY MEASURES IN PLACE. REPORT GIVEN TO ON COMING NURSE.
--- NOTE | 2022-11-09 04:46 | NUR ---
SHIFT SUMMARY; NO ACUTE CHANGES OVERNIGHT. PT RESTED IN BED T/O THE NIGHT. THE PT REQUESTED PAIN MEDS ONCE LAST NIGHT, MEDICATED PER EMAR. CREAM AND POWDER APPLIED TO LIA AREA FOR REDNESS. PT WITH NO LIQUID STOOLS LAST NIGHT. THE PT USED THE BEDSIDE URINAL T/O THE NIGHT. THE PT IS ABLE TO TURN HIMSELF IN THE BED. CURRENTLY THE PT IS RESTING IN BED WITH THE BED IN THE LOWEST POSITION AND THE CALL LIGHT AT BEDSIDE. PT NPO AFTER MIDNIGHT FOR POSSIBLE ABCESS DRAINAGE TODAY, CONSULT FOR DR. FOX CALLED IN THIS AM.
[2022-11-09 13:07] LABS: Creatinine, Blood 1.23 mg/dL (0.60-1.20)
[2022-11-09 13:11] LABS: Vancomycin, Trough 21.4 ug/mL (5.0-10.0)
--- NOTE | 2022-11-09 19:04 | NUR ---
PT RESTING IN BED NO S/S OF ACUTE DISTRESS, SAFETY MEASURES IN PLACE REPORT GIVEN TO ON COMING NURSE.
[2022-11-10 05:30] LABS: Hematocrit 20.9 % (37.0-53.0)
[2022-11-10 05:58] LABS: Albumin, Blood 2.3 g/dL (3.4-5.0); Anion Gap 8 mmol/L (6-16); Blood Urea Nitrogen 16 mg/dL (8-24); Bun/Creatinine Ratio 12.3 (12.0-20.0); CO2, Blood 21 mmol/L (21-32); Calcium, Blood 8.4 mg/dL (8.5-10.1); Chloride, Blood 102 mmol/L (98-108); Glomerular Filtration Rate 63 (60-); Glucose, Blood 216 mg/dL (70-99); Phosphorus, Blood 3.1 mg/dL (2.5-4.9); Potassium, Blood 4.3 mmol/L (3.5-5.5); Sodium, Blood 131 mmol/L (136-145)
--- NOTE | 2022-11-10 06:15 | NUR ---
FEED MILL MANAGER SUMMARY NO ACUTE EVENTS. PT A/OX4. COOPERATIVE WITH CARE. LOWER LEFT ABD DRAIN F/ABCESS INTACT- VERY LITTLE DRAINAGE T/O THE SHIFT. PT DENIES PAIN OR INCREASED DISCOMFORT IN THE ABD. PT REQUESTED GABAPENTIN W/PM MEDS; REPORTS TAKING 900MG BID; MED/DOSE ON MED CLAIM HX. CALL T/DR NOVA; ADDED SCHED MED T/EMAR. PT USING URINAL. PT ABLE TO MAKE NEEDS KNOWN. CALL LIGHT ACCESSIBLE. BED LOCKED/LOW.
[2022-11-10 07:41] LABS: Hematocrit 30.8 % (37.0-53.0); Hemoglobin 10.4 g/dL (13.5-17.5)
--- NOTE | 2022-11-10 08:00 | NUR ---
pt laying in bed watching tv, a/ox3, pleasant and cooperative with care, follows commands well, denies pain, sates his night was ok, lungs are clear dim in bases, on r/a, no cough noted, hrr, no edema noted, ppp+1, cap refill <3sec, vs stable, afebrile, piv site to rw is clear and patent, btx4, abd flat soft nontender, voids without diff, skin has excoriated ranjeet area, has drain to llq, right aka, maykel, call light in reach.
--- NOTE | 2022-11-10 18:07 | NUR ---
pt laying in bed watching tv and movies, states pain is a bit better after pain meds, encouraged him to turn to his sides every few hrs, he agreed to after dinner, no further changes this shift, call light in reach.
--- NOTE | 2022-11-11 04:40 | NUR ---
NIGHTH SHIFT SUMMARY NO ACUTE EVENTS. PT A/OX3. COOPERATIVE WITH CARE. PT AFFECT FLAT/WITHDRAWN. PT DENIES PAIN. USING URINIAL INDEPENDENTLY IN BED. ABLE TO MAKE NEEDS KNOWN AND USES CALL LIGHT APPROPRIATELY. RCV ABOX IN RT WRIST PIV; PATENT; FLUSHES NICELY, DENIES PAIN. CALL LIGHT ACCESSIBLE. BED LOCKED/LOW. VSS REVIWED/STABLE; HR IS TACHY. PT DENIES CHEST PAIN/PRESSURE. DENIES SOB. WILL CONT TO MONITOR.
[2022-11-11 05:07] LABS: Hematocrit 28.6 % (37.0-53.0); Hemoglobin 9.4 g/dL (13.5-17.5)
[2022-11-11 05:38] LABS: Anion Gap 6 mmol/L (6-16); Blood Urea Nitrogen 23 mg/dL (8-24); Bun/Creatinine Ratio 13.6 (12.0-20.0); CO2, Blood 22 mmol/L (21-32); Calcium, Blood 8.3 mg/dL (8.5-10.1); Chloride, Blood 102 mmol/L (98-108); Creatinine, Blood 1.69 mg/dL (0.60-1.20); Glomerular Filtration Rate 46 (60-); Glucose, Blood 210 mg/dL (70-99); Phosphorus, Blood 3.1 mg/dL (2.5-4.9); Potassium, Blood 4.3 mmol/L (3.5-5.5); Sodium, Blood 130 mmol/L (136-145)
--- NOTE | 2022-11-11 17:50 | NUR ---
SHIFT SUMMARY ALERT AND ORIENTED. MIN ASSIST TO TRANSFER TO WHEELCHAIR IN AFTERNOON. ABLE TO MOBILIZE IN HALLS WITH WC. HX R AKA. DRAIN TO LEFT PSOAS ABSCESS WITH MINIMAL PURULENT DRAINAGE. TOLERATING ADA DIET AND LIQUIDS. USES URINAL AT BEDSIDE, CALLS APPROPRIATELY FOR BEDPAN. LOOSE STOOLS. ORDER FOR PICC LINE, WILL NEED 14 DAYS IV VANCO. PLAN IS TO DC TO [facility]. PENDING BLOOD CULTURES. BLOOD SUGARS COVERED PER SLIDING SCALE. MEDICATED FOR PAIN PRN.
[2022-11-11 21:53] LABS: Vancomycin, Trough 23.8 ug/mL (5.0-10.0)
--- NOTE | 2022-11-12 04:26 | NUR ---
SHIFT SUMMARY PATIENT HAD NO ACUTE CHANGES. AXOX 3 WITH RAKA USING W/C BASELINE. PIV REMAINS INTACT. IV ABX INFUSED. CBG 261. TEMP 100.4 RESOLVED WITH TYLENOL 650 MG TO 97.6. USES URINAL AT BEDSIDE AND BED CHAMPION. DENIES PAIN, SOB, AND N/V. VSS/AFEBRILE. DRAIN TO LEFT PSOAS ABSCESS INTACT. CALL LIGHT IN REACH. BED IN LOWEST POSITION. WILL CONTINUE TO MONITOR UNTIL DAY SHIFT NURSE ASSUMES CARE.
[2022-11-12 05:18] LABS: BASOPHILS ABSOLUTE AUTO 0.04 K/mm3 (0.00-0.23); BASOPHILS PERCENT AUTO 1 % (0-2); EOSINOPHILS ABSOLUTE AUTO 0.02 K/mm3 (0.00-0.68); EOSINOPHILS PERCENT AUTO 0 % (0-6); Hematocrit 29.8 % (37.0-53.0); Hemoglobin 9.7 g/dL (13.5-17.5); IMMATURE GRAN ABSOLUTE AUTO 0.04 K/mm3 (0.00-0.10); IMMATURE GRAN PERCENT AUTO 1 % (0-1); LYMPHOCYTES ABSOLUTE AUTO 1.23 K/mm3 (0.84-5.20); LYMPHOCYTES PERCENT AUTO 21 % (21-46); MONOCYTES ABSOLUTE AUTO 0.51 K/mm3 (0.16-1.47); MONOCYTES PERCENT AUTO 9 % (4-13); Mean Corpuscular HGB 27.7 pg (26.0-34.0); Mean Corpuscular HGB Conc 32.6 g/dL (31.5-36.5); Mean Corpuscular Volume 85 fL (80-100); Mean Platelet Volume 9.5 fL (9.1-12.4); NEUTROPHILS ABSOLUTE AUTO 4.17 K/mm3 (1.96-9.15); NEUTROPHILS PERCENT AUTO 69 % (41-73); Platelet Count 191 K/mm3 (150-400); RDW Coefficient Variation 14.1 % (11.7-14.2); RDW Standard Deviation 44.1 fL (35.1-46.3); White Blood Cell Count 6.01 K/mm3 (4.00-11.30)
[2022-11-12 05:53] LABS: Albumin/Globulin Ratio 0.4 (0.8-1.8); Bilirubin, Total 0.6 mg/dL (0.1-1.0); Calcium, Blood 8.8 mg/dL (8.5-10.1); Creatinine, Blood 1.62 mg/dL (0.60-1.20); Globulin, Blood 5.5 g/dL (2.2-4.0); Potassium, Blood 4.2 mmol/L (3.5-5.5); Total Protein, Blood 7.5 g/dL (6.4-8.2)
--- NOTE | 2022-11-12 10:57 | NUR ---
pt laying in bed watching tv, a/ox3, flat affect, states he's doing ok, no complaints, states he slept ok, lungs are clear dim in bases, resp even and unlabored, no cough noted, hrr, no edema noted, ppp to left foot +1, cap refill <3sec, vs stable, afebrile, piv site is clear and patent, btx4, abd flat soft nontender, voids clear anastasia urine via urinal, reports reg bm's, skin has drain to right flank scant álvarez drainage, mepilex to coccyx, maew, doesn't seem motivated to get oob, maykel, call light in reach.
--- NOTE | 2022-11-12 18:10 | NUR ---
pt had a bed bath with change of clothes, have encouraged him numerous times to get up to chair today, isn't wanting to, having a ct this evening, no acute changes this shift. call light in reach.
--- NOTE | 2022-11-13 04:46 | NUR ---
SHIFT SUMMARY PATIENT HAD NO ACUTE CHANGES. AXOX 3 BEDREST WITH RAKA. PIV REMAINS INTACT. IV ABX INFUSED. CBG 269. SOFT BP AND PO LOPRESSOR HELD PER PARAMETER. DRAIN TO LEFT PSOAS ABSCESS INTACT. DENIES PAIN, SOB, AND N/V. VSS/AFEBRILE. CALL LIGHT IN REACH. BED IN LOWEST POSITION. WILL CONTINUE TO MONITOR UNTIL DAY SHIFT NURSE ASSUMES CARE.
[2022-11-13 05:16] LABS: Vancomycin, Trough 15.8 ug/mL (5.0-10.0)
[2022-11-13 07:48] LABS: Bun/Creatinine Ratio 15.8 (12.0-20.0); Calcium, Blood 8.4 mg/dL (8.5-10.1); Creatinine, Blood 1.71 mg/dL (0.60-1.20); Potassium, Blood 4.6 mmol/L (3.5-5.5)
--- NOTE | 2022-11-13 09:00 | NUR ---
pt sitting up in his wheelchair, wants to go outside the room for a bit, Dr. King in to see him, waiting on picc to be placed before he can transition to snf, pt states he's doing ok, flat affect, but cooperative with care, follows commands well, lungs are clear dim in bases, resp even and unlabored, no cough noted, hrr, raka, no edema noted, ppp faint, cap refill <3sec, vs stable, afebrile, iv site to rfa, site is clear and patent, btx4, abd flat soft nontender, voids via urinal, skin has mepilex to coccyx, and drain to left lower flank draining scant álvarez material, maew, can stand but is weak, maykel, call light in reach.
--- NOTE | 2022-11-13 18:05 | NUR ---
pt is currently having a picc line placed, his piv wont flush, and is painful, attempted several times to obtain access without success, has been resting in bed most of the day, no acute changes this shift. call light in reach.
--- NOTE | 2022-11-14 04:19 | NUR ---
SHIFT SUMMARY PATIENT HAD NO ACUTE CHANGES. AXOX 3 WITH FLAT AFFECT AND BEDREST. USES BEDPAN AND URINAL. PICC LINE GABBI INTACT. IV ABX INFUSED. CBG 252. VSS/AFEBRILE. DENIES PAIN, SOB, AND N/V. DRAIN TO LEFT PSOAS ABSCESS WITH SCANT NEGRON OUTPUT. CALL LIGHT IN REACH. BED IN LOWEST POSITION. WILL CONTINUE TO MONITOR UNTIL DAY SHIFT NURSE ASSUMES CARE.
[2022-11-14 06:01] LABS: BASOPHILS ABSOLUTE AUTO 0.03 K/mm3 (0.00-0.23); BASOPHILS PERCENT AUTO 1 % (0-2); EOSINOPHILS ABSOLUTE AUTO 0.04 K/mm3 (0.00-0.68); EOSINOPHILS PERCENT AUTO 1 % (0-6); Hemoglobin 8.6 g/dL (13.5-17.5); IMMATURE GRAN ABSOLUTE AUTO 0.05 K/mm3 (0.00-0.10); IMMATURE GRAN PERCENT AUTO 1 % (0-1); LYMPHOCYTES ABSOLUTE AUTO 1.29 K/mm3 (0.84-5.20); LYMPHOCYTES PERCENT AUTO 23 % (21-46); MONOCYTES ABSOLUTE AUTO 0.53 K/mm3 (0.16-1.47); MONOCYTES PERCENT AUTO 9 % (4-13); Mean Corpuscular HGB 27.9 pg (26.0-34.0); Mean Corpuscular HGB Conc 33.1 g/dL (31.5-36.5); Mean Corpuscular Volume 84 fL (80-100); Mean Platelet Volume 8.9 fL (9.1-12.4); NEUTROPHILS ABSOLUTE AUTO 3.76 K/mm3 (1.96-9.15); NEUTROPHILS PERCENT AUTO 66 % (41-73); Platelet Count 169 K/mm3 (150-400); RDW Coefficient Variation 13.8 % (11.7-14.2); RDW Standard Deviation 42.5 fL (35.1-46.3); Red Blood Cell Count 3.08 M/mm3 (4.30-5.90)
[2022-11-14 06:24] LABS: Bun/Creatinine Ratio 15.2 (12.0-20.0); Calcium, Blood 8.7 mg/dL (8.5-10.1); Creatinine, Blood 1.58 mg/dL (0.60-1.20); Potassium, Blood 4.3 mmol/L (3.5-5.5)
[2022-11-14 09:43] LABS: SARS-Cov-2 (COVID-19) PCR, MMC NEGATIVE (NEGATIVE)
[2022-11-14] MEDS ORDERED: INSULANI SC (12:36)
[2022-11-14] MEDS ORDERED: ACET325 PO (12:38)
[2022-11-14] MEDS ORDERED: ROXICODONE5 MG PO (12:38)
[2022-11-14] MEDS ORDERED: LOSA25 PO (12:39)
[2022-11-14] MEDS ORDERED: Neurontin300 MG PO (12:41)
[2022-11-14] MEDS ORDERED: HUMALOG KW100 UNIT/1 SC (12:44)
[2022-11-14] MEDS ORDERED: METSALMENC TOP (12:49)
[2022-11-14] MEDS ORDERED: MICONAZOLE NITR85 GM TOP (12:51)
[2022-11-14] MEDS ORDERED: ONDA4 PO (12:52)
[2022-11-14] MEDS ORDERED: VANCOMYCIN HCL1 G1 IV (12:53)
[2022-11-14] MEDS ORDERED: VISBIOME 112.51 EACH PO (12:55)
--- NOTE | 2022-11-14 14:17 | NUR ---
TRANSFER NOTE PT DISCHARGED/TRANSFERRED TO [facility]. ALL NECESSARY PAPERWORK SENT TO FACILITY. PT TRANSPORTED [facility]IA [facility]. REPORT GIVEN TO JO GONZALES, AT [facility].
== END 2022-11-14 14:16 | DRG 871 ==
LOC: ER 09:54 → PCU 17:23 → MEDS 17:23 → PCU 20:30 → MEDS 11-04 18:19
PROVIDERS: Emergency Medicine; Family Medicine; Family Medicine Adult Medicine; Hospitalist; Pharmacist Pharmacotherapy; Physician Assistant; Student in an Organized Health Care Education/Training Program; ADMIT Internal Medicine
PROC: 3E03329 Introduction of Other Anti-infective into Peripheral Vein, Percutaneous Approach (ICD-10-PCS; 2022-10-31)
PROC: 3E02340 Introduction of Influenza Vaccine into Muscle, Percutaneous Approach (ICD-10-PCS; 2022-10-31)
PROC: 0K9P30Z Drainage of Left Hip Muscle with Drainage Device, Percutaneous Approach (ICD-10-PCS; principal; 2022-11-09)
PROC: 02HV33Z Insertion of Infusion Device into Superior Vena Cava, Percutaneous Approach (ICD-10-PCS; 2022-11-13)
DX: A41.02 Sepsis due to Methicillin resistant Staphylococcus aureus (principal); E11.10 Type 2 diabetes mellitus with ketoacidosis without coma; K68.12 Psoas muscle abscess; R65.21 Severe sepsis with septic shock; G92.8 Other toxic encephalopathy; N17.9 Acute kidney failure, unspecified; E87.1 Hypo-osmolality and hyponatremia; N39.0 Urinary tract infection, site not specified; I48.91 Unspecified atrial fibrillation; Z66 Do not resuscitate; D64.9 Anemia, unspecified; R19.7 Diarrhea, unspecified; E11.65 Type 2 diabetes mellitus with hyperglycemia; I10 Essential (primary) hypertension; N40.0 Benign prostatic hyperplasia without lower urinary tract symptoms; M25.552 Pain in left hip; M25.532 Pain in left wrist; Z20.822 Contact with and (suspected) exposure to COVID-19; W19.XXXA Unspecified fall, initial encounter; Z23 Encounter for immunization; Z89.511 Acquired absence of right leg below knee; Z88.8 Allergy status to other drugs, medicaments and biological substances; Z79.01 Long term (current) use of anticoagulants; Z79.899 Other long term (current) drug therapy; Z79.4 Long term (current) use of insulin; Z79.891 Long term (current) use of opiate analgesic; Z87.39 Personal history of other diseases of the musculoskeletal system and connective tissue
CPT/HCPCS: 0241U; 36415; 51702; 73110; 73502; 74177; 75989; 80048; 80053; 80069; 80202; 81001; 82010; 82248; 82565; 82803; 82947; 83036; 83605; 83735; 83880; 85014; 85018; 85025; 85610; 85730; 87040; 87070; 87075; 87077; 87086; 87147; 87186; 87205; 87324; 87493; 90686; 93306; 96374-59; 96375-59; 96376-59; 97110; 97162; 97530; 99285-25; A9270; J0360; J0696; J1650; J1815; J3010; J3370; J3475; J7030; J7040; J7050; Q9967; U0004

== ENCOUNTER 2022-11-24 11:27 | Inpatient (IN) | payer OTHER ==
[~2022-11-24] VITALS: Ht 188 cm; Wt 80.7 kg
[~2022-11-24 11:27] MED LIST changes: +ACET325 PO; +HUMALOG KW100 UNIT/1 SC; +METSALMENC TOP; +MICONAZOLE NITR85 GM TOP; +Neurontin300 MG PO; +ONDA4 PO; +ROXICODONE5 MG PO; +VANCOMYCIN HCL1 G1 IV; +VISBIOME 112.51 EACH PO
[2022-11-24 12:22] LABS: BASOPHILS ABSOLUTE AUTO 0.02 K/mm3 (0.00-0.23); BASOPHILS PERCENT AUTO 0 % (0-2); EOSINOPHILS ABSOLUTE AUTO 0.04 K/mm3 (0.00-0.68); EOSINOPHILS PERCENT AUTO 1 % (0-6); Hemoglobin 7.9 g/dL (13.5-17.5); IMMATURE GRAN ABSOLUTE AUTO 0.05 K/mm3 (0.00-0.10); IMMATURE GRAN PERCENT AUTO 1 % (0-1); LYMPHOCYTES ABSOLUTE AUTO 0.83 K/mm3 (0.84-5.20); LYMPHOCYTES PERCENT AUTO 16 % (21-46); MONOCYTES ABSOLUTE AUTO 0.53 K/mm3 (0.16-1.47); MONOCYTES PERCENT AUTO 10 % (4-13); Mean Corpuscular HGB 27.2 pg (26.0-34.0); Mean Corpuscular HGB Conc 32.9 g/dL (31.5-36.5); Mean Corpuscular Volume 83 fL (80-100); Mean Platelet Volume 9.9 fL (9.1-12.4); NEUTROPHILS ABSOLUTE AUTO 3.83 K/mm3 (1.96-9.15); NEUTROPHILS PERCENT AUTO 72 % (41-73); Platelet Count 196 K/mm3 (150-400); RDW Coefficient Variation 13.9 % (11.7-14.2); RDW Standard Deviation 42.1 fL (35.1-46.3)
[2022-11-24 12:55] LABS: Albumin, Blood 2.4 g/dL (3.4-5.0); Albumin/Globulin Ratio 0.4 (0.8-1.8); Bilirubin, Total 0.4 mg/dL (0.1-1.0); Bun/Creatinine Ratio 19.4 (12.0-20.0); Calcium, Blood 8.7 mg/dL (8.5-10.1); Creatinine, Blood 1.65 mg/dL (0.60-1.20); Globulin, Blood 5.9 g/dL (2.2-4.0); Total Protein, Blood 8.3 g/dL (6.4-8.2)
[2022-11-24 16:10] LABS: Vancomycin, Random 20.2 ug/mL
--- NOTE | 2022-11-24 16:10 | NUR ---
Called in Surgery Consult to Dr. Dow office, waiting for call back.
--- NOTE | 2022-11-24 19:09 | NUR ---
Patient admitted for MRSA infection. He had a drain placed, left flank, while he was at SNF, the drain accidently got pulled out. Called surgical consult, Surgeon came to bedside to assess patient. Procedure has not been scheduled at this time. Will continue to monitor. Vitals stable, will continue plan of care.
--- NOTE | 2022-11-24 20:37 | NUR ---
NURSE NOTE--PHYSICIAN CONTANCT PT MAP 48; BP 80/42; THEN MANUAL BP 90/38. CALL TO EMPLOYEE PLACEMENT SPECIALIST/DR MORALES; NEW ORDER FOR 1000ML BOUS LR NOW AND THEN CONTINUE WITH MANT FLUID. MONITOR BP AND W/HOLD BP MEDS FOR INDICATED PARAMETERS.
[2022-11-25 05:22] LABS: BASOPHILS ABSOLUTE AUTO 0.03 K/mm3 (0.00-0.23); BASOPHILS PERCENT AUTO 1 % (0-2); EOSINOPHILS ABSOLUTE AUTO 0.06 K/mm3 (0.00-0.68); EOSINOPHILS PERCENT AUTO 2 % (0-6); Hematocrit 20.5 % (37.0-53.0); Hemoglobin 6.6 g/dL (13.5-17.5); IMMATURE GRAN ABSOLUTE AUTO 0.02 K/mm3 (0.00-0.10); IMMATURE GRAN PERCENT AUTO 1 % (0-1); LYMPHOCYTES ABSOLUTE AUTO 0.85 K/mm3 (0.84-5.20); LYMPHOCYTES PERCENT AUTO 22 % (21-46); MONOCYTES ABSOLUTE AUTO 0.41 K/mm3 (0.16-1.47); MONOCYTES PERCENT AUTO 11 % (4-13); Mean Corpuscular HGB 26.8 pg (26.0-34.0); Mean Corpuscular HGB Conc 32.2 g/dL (31.5-36.5); Mean Corpuscular Volume 83 fL (80-100); Mean Platelet Volume 9.6 fL (9.1-12.4); NEUTROPHILS ABSOLUTE AUTO 2.55 K/mm3 (1.96-9.15); NEUTROPHILS PERCENT AUTO 65 % (41-73); Platelet Count 161 K/mm3 (150-400); RDW Coefficient Variation 14.1 % (11.7-14.2); RDW Standard Deviation 43.1 fL (35.1-46.3); Red Blood Cell Count 2.46 M/mm3 (4.30-5.90); White Blood Cell Count 3.92 K/mm3 (4.00-11.30)
--- NOTE | 2022-11-25 05:37 | NUR ---
HALL PORTER SUMMARY PT A/OX4. PLEASANT AND COOPERATIVE. PT HAD MAP OF 48; LOW BP AND TACHY HR; CALL TO DR--SEE NOTE; GAVE 1 LITER BOLUS WITH GOOD EFFECT. MAP AFTER BOLUS WAS 88; AM VS MAP 73. PT HAS BEEN C/O OF SEVERE BURNING/RADIATING PAIN DOWN HIS LEFT FLANK (DRAIN SITE) AND DOWN HIS LEG. MED W/NORCO AND FENTANYL WITH LITTLE EFFECT. CALL TO CHAIN MAKER MACHINE/DR MORALES; NEW ORDER FOR 1 TIME DOSE 0.5MG DILAUDID; GAVE WITH GOOD EFFECT. PT REPORTING BED UNCOMFORTABLE AND INCREASING PRESSURE/PAIN ON BACK/LEG. ADDED EGG CRATE AND HEATING PAD; PT REPORTS IMPROVED COMFORT. TISSUE AROUND DRAIN SITE APPEARS RED AND WARM. LEFT ARM PICC LINE INFUSING NS 100MLS P/HR AND 0500 DOSE OF VANCO. LABS DRAWN F/PICC LINE. PT ABLE TO MAKE NEEDS KNOWN. CALLS APPROPRIATELY. CALL LIGHT ACCESSIBLE. WILL CONT TO MONITOR.
[2022-11-25 05:39] LABS: International Normalized Ratio 1.19; Prothrombin Time Results 12.4 Sec (9.7-11.5)
[2022-11-25 05:44] LABS: Bun/Creatinine Ratio 15.9 (12.0-20.0); Calcium, Blood 8.4 mg/dL (8.5-10.1); Creatinine, Blood 1.45 mg/dL (0.60-1.20); Magnesium, Blood 1.7 mg/dL (1.6-2.4); Potassium, Blood 3.7 mmol/L (3.5-5.5)
--- NOTE | 2022-11-25 16:39 | NUR ---
DAYSHIFT SUMMARY Patient pleasant, AOx4. This morning patient had low H/H, MD ordered 1 unit of PRBCs. Transfused blood, no reactions observed, vitals stable, afebrile, lungs clear t/o. This afternoon patient went down & had drain placed in left flank, fluid culture send to lab. Dressing around drain CDI, sutures holding drain in place, Scant bloody fluid noted in drain. Patient is painful w/ movement. Will continue Vanco IV infusions, and manage pain.
--- NOTE | 2022-11-26 04:19 | NUR ---
SHIFT SUMMARY PATIENT HAD NO ACUTE CHANGES. AXOX 4 AND STAND PIVOT TO BSC WITH ROMEO. PICC LINE GABBI INTACT. IV ABX FINISHED INFUSING FROM DAY SHIFT. CBG 265. DENIES PAIN, SOB, AND N/V. DRAIN TO LEFT FLANK INTACT. VSS/AFEBRILE. CALL LIGHT IN REACH. BED IN LOWEST POSITION. WILL CONTINUE TO MONITOR UNTIL DAY SHIFT NURSE ASSUMES CARE.
[2022-11-26 05:08] LABS: BASOPHILS ABSOLUTE AUTO 0.01 K/mm3 (0.00-0.23); BASOPHILS PERCENT AUTO 0 % (0-2); EOSINOPHILS ABSOLUTE AUTO 0.05 K/mm3 (0.00-0.68); EOSINOPHILS PERCENT AUTO 1 % (0-6); Hematocrit 22.8 % (37.0-53.0); Hemoglobin 7.4 g/dL (13.5-17.5); IMMATURE GRAN ABSOLUTE AUTO 0.05 K/mm3 (0.00-0.10); IMMATURE GRAN PERCENT AUTO 1 % (0-1); LYMPHOCYTES ABSOLUTE AUTO 1.14 K/mm3 (0.84-5.20); LYMPHOCYTES PERCENT AUTO 25 % (21-46); MONOCYTES ABSOLUTE AUTO 0.45 K/mm3 (0.16-1.47); MONOCYTES PERCENT AUTO 10 % (4-13); Mean Corpuscular HGB 27.6 pg (26.0-34.0); Mean Corpuscular HGB Conc 32.5 g/dL (31.5-36.5); Mean Corpuscular Volume 85 fL (80-100); NEUTROPHILS ABSOLUTE AUTO 2.92 K/mm3 (1.96-9.15); NEUTROPHILS PERCENT AUTO 63 % (41-73); Platelet Count 150 K/mm3 (150-400); RDW Coefficient Variation 14.3 % (11.7-14.2); RDW Standard Deviation 44.6 fL (35.1-46.3); Red Blood Cell Count 2.68 M/mm3 (4.30-5.90); White Blood Cell Count 4.62 K/mm3 (4.00-11.30)
[2022-11-26 05:31] LABS: Calcium, Blood 8.6 mg/dL (8.5-10.1); Creatinine, Blood 1.27 mg/dL (0.60-1.20); Potassium, Blood 3.8 mmol/L (3.5-5.5)
[2022-11-26 16:36] LABS: Vancomycin, Trough 14.8 ug/mL (5.0-10.0)
--- NOTE | 2022-11-26 17:03 | NUR ---
DAYSHIFT SUMMARY No acute changes to patient status. S/p drain placement into left psoas abscess. Drain sutured in place, dressing CDI. Drain bag containing dark bloody fluid. Pain managed with IV Fentynal & [place]. Vitals stable, CBGs WNL, SSI given. Will continue plan of care, awaiting discharge planning back to SNF.
--- NOTE | 2022-11-27 04:11 | NUR ---
SHIFT SUMMARY PATIENT HAD NO ACUTE CHANGES. AXOX 4 AND STAND/PIVOT TO BSC. RAKA. PICC LINE INTACT. CBG 254. NORCO GIVEN X ONE FOR LEFT FLANK PAIN. DRAIN INTACT WITH DARK BLOODY FLUID. IV ABX INFUSED. DENIES SOB AND N/V. VSS/AFEBRILE. CALL LIGHT IN REACH. BED IN LOWEST POSITION. WILL CONTINUE TO MONITOR UNTIL DAY SHIFT NURSE ASSUMES CARE.
[2022-11-27 05:22] LABS: BASOPHILS ABSOLUTE AUTO 0.02 K/mm3 (0.00-0.23); BASOPHILS PERCENT AUTO 0 % (0-2); EOSINOPHILS ABSOLUTE AUTO 0.08 K/mm3 (0.00-0.68); EOSINOPHILS PERCENT AUTO 2 % (0-6); Hematocrit 24.5 % (37.0-53.0); IMMATURE GRAN ABSOLUTE AUTO 0.09 K/mm3 (0.00-0.10); IMMATURE GRAN PERCENT AUTO 2 % (0-1); LYMPHOCYTES ABSOLUTE AUTO 1.17 K/mm3 (0.84-5.20); LYMPHOCYTES PERCENT AUTO 24 % (21-46); MONOCYTES ABSOLUTE AUTO 0.42 K/mm3 (0.16-1.47); MONOCYTES PERCENT AUTO 9 % (4-13); Mean Corpuscular HGB 27.9 pg (26.0-34.0); Mean Corpuscular HGB Conc 32.7 g/dL (31.5-36.5); Mean Corpuscular Volume 85 fL (80-100); Mean Platelet Volume 9.2 fL (9.1-12.4); NEUTROPHILS ABSOLUTE AUTO 3.11 K/mm3 (1.96-9.15); NEUTROPHILS PERCENT AUTO 64 % (41-73); Platelet Count 185 K/mm3 (150-400); RDW Coefficient Variation 14.2 % (11.7-14.2); Red Blood Cell Count 2.87 M/mm3 (4.30-5.90); White Blood Cell Count 4.89 K/mm3 (4.00-11.30)
[2022-11-27 05:52] LABS: Bun/Creatinine Ratio 13.8 (12.0-20.0); Calcium, Blood 8.7 mg/dL (8.5-10.1); Creatinine, Blood 1.23 mg/dL (0.60-1.20); Potassium, Blood 4.1 mmol/L (3.5-5.5)
--- NOTE | 2022-11-27 12:57 | NUR ---
wrong medication given, charge master coordinator lauren, pharmacy wallace, and dr key informed. patient started on telemetry 78 nsr, denies cp nv or weakness. vss, good appetite ate breakfast and lunch, bsu, call light with in reach, makes needs known
--- NOTE | 2022-11-27 18:00 | NUR ---
ALERT AND ORIENTED, MAKES NEEDS KNOWN, CHANGED DRAIN DRESSING, MEPILEX TO COCCYX FOR PREVENTATIVE MEASURES, TELE NSR 70 NO ABNORMALITIES OR BRADYCARDIA, HELD PM METOPROLOL DUE CONTINUED SBP 100-105 AND DROWSYNESS, WILL RELAY TO PM RN
--- NOTE | 2022-11-28 04:10 | NUR ---
SHIFT SUMMARY PATIENT HAD NO ACUTE CHANGES. AXO X4 AND STAND PIVOT TO BSC. RAKA. USES URINAL AT BEDSIDE. PICC GABBI INTACT. IV ABX INFUSED. CBG 228. REPORTED LEFT FLANK PAIN X ONE AND NORCO GIVEN PER EMAR. LEFT FLANK DRAIN INTACT. DENIES CHEST PAIN, SOB, AND N/V. VSS/AFEBRILE. CALL LIGHT IN REACH. BED IN LOWEST POSITION. WILL CONTINUE TO MONITOR UNTIL DAY SHIFT NURSE ASSUMES CARE.
[2022-11-28 05:26] LABS: Hematocrit 25.6 % (37.0-53.0); Hemoglobin 8.3 g/dL (13.5-17.5)
[2022-11-28 05:49] LABS: Albumin, Blood 2.2 g/dL (3.4-5.0); Anion Gap 3 mmol/L (6-16); Blood Urea Nitrogen 19 mg/dL (8-24); Bun/Creatinine Ratio 16.4 (12.0-20.0); CO2, Blood 25 mmol/L (21-32); Calcium, Blood 8.8 mg/dL (8.5-10.1); Chloride, Blood 106 mmol/L (98-108); Creatinine, Blood 1.16 mg/dL (0.60-1.20); Glomerular Filtration Rate 73 (60-); Glucose, Blood 170 mg/dL (70-99); Phosphorus, Blood 3.4 mg/dL (2.5-4.9); Potassium, Blood 4.1 mmol/L (3.5-5.5); Sodium, Blood 134 mmol/L (136-145)
[2022-11-28 11:34] LABS: Vancomycin, Trough 21.5 ug/mL (5.0-10.0)
--- NOTE | 2022-11-28 17:19 | NUR ---
SHIFT SUMMARY A&OX4, COOPERATIVE WITH CARE. COMPLAINED OF PAIN TO COCCYX T/O DAY. PT DID NOT GET UP TO BSC FOR BM TODAY, WAS ABLE TO REPOSITION HIMSELF DURING SHIFT. R AKA. CONTINENT AND USES A URINAL. REFUSED CHLORAHEXIDINE WASH FOR PICC LINE. NO ACUTE CHANGES DURING THIS SHIFT. DENIES SOB, DIZZINESS, OR CHEST PAIN. CURRENTLY RESTING COMFORTABLY WITH CALL LIGHT IN REACH.
--- NOTE | 2022-11-29 05:22 | NUR ---
Shift Summary Pt left flank drain patent and draining dark red liquid. Pt c/o pain in left side and medicated per emar. Drain dressing C/D/I. PICC in GABBI patent, rcving IV abx. Continent, uses urinal. VSS, pleasant and cooperative.
--- NOTE | 2022-11-29 18:05 | NUR ---
SHIFT SUMMARY A&OX4, COOPERATIVE WITH CARE. PT NOTED TO BE TIRED AND IN MORE LOWER BACK PAIN T/O DAY. K-PAD HELPED A LITTLE WITH PAIN, BUT PT RECEIVED PAIN MEDS PER EMAR PROTOCOL. DRAIN EMPTIED - 150ML OF THICK VISCOUS BURGANDY COLORED OUTOUT. DRESSING ON RECENTLY REMOVED DRAIN SHOWS A SMALL AMOUNT OF BLOODY DRAINAGE BUT CDI. NO ACUTE CHANGES DURING THIS SHIFT. CURRENTLY EATING DINNER WITH CALL LIGHT IN REACH.
--- NOTE | 2022-11-30 05:16 | NUR ---
Shift Summary AOx4, pleasant and cooperative with care. Belly wrap in place to help protect left flank drain. Drain continues to have dark red output. Drain dressing C/D/I. Pt c/o of pain in lower back, medicated per EMAR. VSS. Pt had difficulty sleeping and was awake for most of the night.
[2022-11-30 05:26] LABS: BASOPHILS ABSOLUTE AUTO 0.05 K/mm3 (0.00-0.23); BASOPHILS PERCENT AUTO 1 % (0-2); EOSINOPHILS ABSOLUTE AUTO 0.11 K/mm3 (0.00-0.68); EOSINOPHILS PERCENT AUTO 2 % (0-6); Hematocrit 28.2 % (37.0-53.0); Hemoglobin 9.2 g/dL (13.5-17.5); IMMATURE GRAN ABSOLUTE AUTO 0.17 K/mm3 (0.00-0.10); IMMATURE GRAN PERCENT AUTO 3 % (0-1); LYMPHOCYTES ABSOLUTE AUTO 1.83 K/mm3 (0.84-5.20); LYMPHOCYTES PERCENT AUTO 27 % (21-46); MONOCYTES ABSOLUTE AUTO 0.52 K/mm3 (0.16-1.47); MONOCYTES PERCENT AUTO 8 % (4-13); Mean Corpuscular HGB 27.6 pg (26.0-34.0); Mean Corpuscular HGB Conc 32.6 g/dL (31.5-36.5); Mean Corpuscular Volume 85 fL (80-100); Mean Platelet Volume 9.4 fL (9.1-12.4); NEUTROPHILS ABSOLUTE AUTO 4.19 K/mm3 (1.96-9.15); NEUTROPHILS PERCENT AUTO 61 % (41-73); Platelet Count 313 K/mm3 (150-400); RDW Coefficient Variation 14.7 % (11.7-14.2); RDW Standard Deviation 45.2 fL (35.1-46.3); Red Blood Cell Count 3.33 M/mm3 (4.30-5.90); White Blood Cell Count 6.87 K/mm3 (4.00-11.30)
[2022-11-30 05:52] LABS: Bun/Creatinine Ratio 13.6 (12.0-20.0); Creatinine, Blood 1.18 mg/dL (0.60-1.20)
[2022-11-30 15:27] LABS: SARS-Cov-2 (COVID-19) PCR, MMC NEGATIVE (NEGATIVE)
--- NOTE | 2022-11-30 15:55 | NUR ---
NOTE PT AWAKE AND ALERT. RETURNED FROM CT SCAN WITHOUT ISSUE. BACK MONSERRAT DRAIN PATENT. DRAINING THICK, MAROON LIQUID. SMALL AMOUNT. PT MEDICATED SEVERAL TIMES FOR BACK PAIN. PT STATED THAT NORCO WAS EFFECTIVE FOR PAIN CONTROL. VOIDING PER URINAL. PICCLINE PATENT-DRESSING CHANGED. DISCHARGE DELAYED UNTIL TOMORROW. CONTINUE POC.
--- NOTE | 2022-12-01 04:38 | NUR ---
SHIFT SUMMARY; NO ACUTE CHANGES OVERNIGHT. THE PT IS AXO X4 AND USES THE BEDSIDE URINAL T/O THE NIGHT. THE PT HAS A DRAIN ON THE L FLANK AREA, DRAINAGE IS RED GELATENOUS LIKE. THE PT DID NOT REQUEST ANY PRN PAIN MEDICATTION LAST NIGHT, PT STATES HE FELT LIKE HIS PAIN WAS UNDER CONTROL FOR NOW. CURRENTLY THE PT IS SLEEPING IN BED WITH THE BED IN THE LOWEST POSITION AND THE CALL LIGHT AT BEDSIDE.
[2022-12-01 11:10] LABS: SARS-Cov-2 (COVID-19) PCR, MMC NEGATIVE (NEGATIVE)
[2022-12-01] MEDS ORDERED: CUBICIN RF500 M1 IV (13:22)
[2022-12-01] MEDS ORDERED: MIRALAX17 GM PO (13:24)
--- NOTE | 2022-12-01 16:57 | NUR ---
REPORT CALLED REPORT TO [facility] RITIKA RANDOLPH. CONTINUEPOC.
--- NOTE | 2022-12-01 17:20 | NUR ---
DISCHARGE PT [facility] HERE TO TRANSPORT PT TO [facility]. EMT WOULDN'T WAIT FOR SLIDER SHEET. THEY ENDED UP PULLING PT OVER TO THE STRETCHER WITH THE EGG CRATE UNDER HIM. EMT THEN PICKED HIM UP WITH THE BED SHEET SO THAT NURSING COULD REMOVE THE EGG CRATE. NO INJURY TO PT. DRAIN/PICC LINE INTACT. CONTINUE POC.
== END 2022-12-01 17:17 | DRG 372 ==
LOC: ER 11:27 → MEDS 11:28
PROVIDERS: Emergency Medicine; Family Medicine Adult Medicine; Internal Medicine; Nurse Practitioner Acute Care; Student in an Organized Health Care Education/Training Program; ADMIT Hospitalist
PROC: 0K9P30Z Drainage of Left Hip Muscle with Drainage Device, Percutaneous Approach (ICD-10-PCS; principal; 2022-11-25)
PROC: 30233N1 Transfusion of Nonautologous Red Blood Cells into Peripheral Vein, Percutaneous Approach (ICD-10-PCS; 2022-11-25)
DX: K68.12 Psoas muscle abscess (principal); E87.1 Hypo-osmolality and hyponatremia; R78.81 Bacteremia; N17.9 Acute kidney failure, unspecified; I48.91 Unspecified atrial fibrillation; A49.02 Methicillin resistant Staphylococcus aureus infection, unspecified site; Z66 Do not resuscitate; K21.9 Gastro-esophageal reflux disease without esophagitis; N40.0 Benign prostatic hyperplasia without lower urinary tract symptoms; I12.9 Hypertensive chronic kidney disease with stage 1 through stage 4 chronic kidney disease, or unspecified chronic kidney disease; E11.22 Type 2 diabetes mellitus with diabetic chronic kidney disease; N18.30 Chronic kidney disease, stage 3 unspecified; D63.1 Anemia in chronic kidney disease; E11.42 Type 2 diabetes mellitus with diabetic polyneuropathy; R74.01 Elevation of levels of liver transaminase levels; E86.0 Dehydration; Z20.822 Contact with and (suspected) exposure to COVID-19; R20.0 Anesthesia of skin; Z87.39 Personal history of other diseases of the musculoskeletal system and connective tissue; Z88.8 Allergy status to other drugs, medicaments and biological substances; Z79.01 Long term (current) use of anticoagulants; Z79.4 Long term (current) use of insulin; Z79.899 Other long term (current) drug therapy; Z89.511 Acquired absence of right leg below knee; Z79.891 Long term (current) use of opiate analgesic; Z79.2 Long term (current) use of antibiotics
CPT/HCPCS: 10030; 36415; 74177; 80048; 80053; 80069; 80202; 82947; 83605; 83735; 85014; 85018; 85025; 85610; 85651; 86141; 86850; 86900; 86901; 86923; 87070; 87075; 87205; 96374-59; 96375; 96376; 99285-25; A9270; G0378; J0878; J1170; J1815; J2270; J3010; J3370; J7030; J7050; J7120; P9016; Q9967; U0004

== ENCOUNTER 2022-12-23 16:15 | Day surgery (SDC) | payer OTHER ==
[~2022-12-23 16:15] MED LIST changes: +CUBICIN RF500 M1 IV; +OXAYDO5 M1 PO; -ROXICODONE5 MG PO
== END 2022-12-23 17:16 ==
LOC: ATC 16:15
DX: R78.81 Bacteremia (principal); B95.62 Methicillin resistant Staphylococcus aureus infection as the cause of diseases classified elsewhere; I10 Essential (primary) hypertension; E11.69 Type 2 diabetes mellitus with other specified complication; M86.9 Osteomyelitis, unspecified; Z79.899 Other long term (current) drug therapy; Z79.4 Long term (current) use of insulin; Z79.01 Long term (current) use of anticoagulants; Z88.6 Allergy status to analgesic agent; Z88.8 Allergy status to other drugs, medicaments and biological substances
CPT/HCPCS: 99211

== ENCOUNTER → 2022-12-26 | Outpatient (CLI) | payer OTHER ==
[2022-12-26 08:23] LABS: Hematocrit 37.6 % (37.0-53.0); Mean Corpuscular HGB 26.8 pg (26.0-34.0); Mean Corpuscular HGB Conc 31.9 g/dL (31.5-36.5); Mean Corpuscular Volume 84 fL (80-100); Mean Platelet Volume 10.7 fL (9.1-12.4); Platelet Count 146 K/mm3 (150-400); RDW Coefficient Variation 14.1 % (11.7-14.2); RDW Standard Deviation 43.1 fL (35.1-46.3); Red Blood Cell Count 4.48 M/mm3 (4.30-5.90); White Blood Cell Count 4.91 K/mm3 (4.00-11.30)
[2022-12-26 08:49] LABS: Albumin/Globulin Ratio 0.6 (0.8-1.8); Bilirubin, Total 0.5 mg/dL (0.1-1.0); Bun/Creatinine Ratio 12.9 (12.0-20.0); C-REACTIVE PROTEIN, EXT RANGE 0.603 mg/dL (0.000-0.300); Calcium, Blood 9.1 mg/dL (8.5-10.1); Creatinine, Blood 1.16 mg/dL (0.60-1.20); Globulin, Blood 5.3 g/dL (2.2-4.0); Potassium, Blood 4.1 mmol/L (3.5-5.5); Total Protein, Blood 8.3 g/dL (6.4-8.2)
== END | disposition home or self-care (01) ==
LOC: LAB UVN 07:15 → EDSTATUS 15:44
PROVIDERS: Internal Medicine
DX: A41.9 Sepsis, unspecified organism (principal); R65.21 Severe sepsis with septic shock; K68.12 Psoas muscle abscess; N18.32 Chronic kidney disease, stage 3b; D63.1 Anemia in chronic kidney disease; L89.152 Pressure ulcer of sacral region, stage 2
CPT/HCPCS: 80053; 82550; 85027; 86140

== ENCOUNTER → 2024-07-30 | Outpatient (CLI) | payer MEDICARE, OTHER ==
[2024-07-30 15:22] LABS: Creatinine, Urine Random 30.4 mg/dL (27.00-270.00); Microalb/Creat Ratio UR, Rand 24.54 mg/g (0.000-30.000); Microalbumin, Random Urine 7.46 mg/L (0.000-20.000)
== END | disposition home or self-care (01) ==
LOC: LAB SHORT 12:37 → LAB 12:37
PROVIDERS: Nurse Practitioner Family
DX: E11.9 Type 2 diabetes mellitus without complications (principal)
CPT/HCPCS: 82043; 82570